=== PATIENT | male | born 1940 | race Caucasian/White ===

== ENCOUNTER → 2016-06-13 | Outpatient (CLI) | payer MEDICARE, OTHER ==
[~2016-06-13] MED LIST: ESOM20CA PO; GABA800T2 PO; IOHEXOL 180 MG/ML 10 ML VIAL. ONE; OXYC-250 PO; TAMS0.4C2 PO; methylPREDNISolone ACETATE 40 MG/ML VIAL. ONE; methylPREDNISolone ACETATE 80 MG/ML VIAL. ONE
--- NOTE | 2016-06-13 10:02 | PAIN ---
DATE OF SERVICE: 06/13/2016 PROGRESS NOTE DIAGNOSES: Lumbar radiculopathy with lumbar degenerative disk disease. HISTORY OF PRESENT ILLNESS: The patient is a 76-year-old male, who returns for followup status post lumbar epidural steroid ejection x 3, last seen in 01/2016. The patient did very well after the last ejection with approximately 70-75% improvement. The patient has been out of town, he has bear hunting in [place], returns now with pain returning to some extent in the low back and left lower extremity, was previously, lateral anterior thigh on the left side with some in the back, gluteus as well and across the low back. The patient reports it is sore and achy, started again in late May and is returned now, not quite at his baseline, but still is significant tender in the low back as well. The patient reports it is worse with standing, walking, change in position, riding a car. The patient rates it 7 on a scale of 10. Reports no new motor or sensory deficit; however, no new bowel or bladder incontinence, or other complaints. The patient's old chart was reviewed as his current medication regimen updated. Current review of systems updated today as well. PHYSICAL EXAMINATION: VITAL SIGNS: Today, the patient's blood pressure is 146/86, pulse 81, respirations 18, temperature 97.4 degrees Fahrenheit, height is 6 feet, weight is 224 pounds. GENERAL: The patient is awake, alert, oriented and appropriate, very pleasant demeanor. HEENT: Shows normocephalic, atraumatic. Extraocular movements are intact and symmetrical. Oral cavity shows mucous membranes moist and pink. Dentition is intact. NECK: Shows anterior throat supple without palpable lymphadenopathy noted. Swallow reflex is symmetrical. CHEST: Normal on inspection. Breath sounds are clear to auscultation bilaterally. CARDIOVASCULAR: S1, S2. ABDOMEN: Soft, nontender, nondistended. BACK: Shows spine grossly midline. Lumbar paraspinous musculature shows some moderate tenderness to palpation, but only diffusely in the middle, upper and lower distribution. The paraspinal muscles again appear symmetrical without evidence of atrophy or hypertrophy. The patient show good rotation of motion in both laterally as well as an extension, flexion without difficulty. EXTREMITIES: Lower extremities show deep tendon reflexes at 1+ in the patellar and tendo calcaneus tendons are equal. Motor exam is strong with 5/5 dorsiflexion, extension, quadriceps and hamstring flexion. PLAN: Options were discussed with the patient. This time we will proceed with a lumbar epidural steroid injection with fluoroscopic guidance. Risks were again discussed including, but not limited to bleeding, infection, possibility of epidural hematoma and subsequent neurologic compromise, dural puncture, headaches, spinal cord and/or nerve damage, side effects of steroid medication and poor results regarding pain control. The patient understands and wishes to proceed. The patient will return to clinic in approximately 2 weeks for followup, was counseled on return appointment, activity level, and side effects to be aware of. DIAGNOSES: Lumbar radiculopathy with lumbar degenerative disk disease. PROCEDURE: Lumbar epidural steroid injection, translaminar approach at the L3-L4 level with fluoroscopic guidance under sterile prep and drape using local anesthetic. Medication injected 120 mg of Depo-Medrol plus 10 mL of preservative free normal saline and 2 mL of Isovue for contrast. The patient's condition at discharge is stable. The patient tolerated procedure well, had no complications. ERIBERTO GEORGES MD DR: STEPHANIE/iman JOB#: [id number] / [id number]
== END | disposition home or self-care (01) ==
LOC: PNCL 08:23
PROVIDERS: ATTEND Anesthesiology
DX: M51.16 Intervertebral disc disorders with radiculopathy, lumbar region (principal)
CPT/HCPCS: 62327; J1030; J1040

== ENCOUNTER 2016-09-05 09:51 | Day surgery (SDC) | payer MEDICARE, OTHER ==
--- NOTE | 2016-09-01 14:35 | PDOC1 ---
History and Physical Date of Admission Date of Admission 09/05/16 Identification/Chief Complaint Chief Complaint bilateral knee pain Source Source: Chart review History of Present Illness History of Present Illness Pasha is a 76-year-old man with bilateral painful knees. He underwent an injection of 80mg depomedrol in the office to both of his knees on 04/26/16. He states that it did not help and mentions that he has had 2 injections since then by his primary care physician, Dr. Topete, which did not provide much relief either. He states that he just wants to talk today about scraping the arthritis off both of his knees because that is all that he thinks he needs. Past Medical History Cardiovascular: No pertinent hx Past Surgical History Past Surgical History: No pertinent history Family History Family History Patient reports no family history Social History Smoke: Quit (04/04/15) ALCOHOL: none Drugs: None Current Medications Current Medications Active Scripts Active Reported Tamsulosin Hcl 0.4 Mg Cap.er.24h 1 Cap PO DAILY Percocet 10-325 Mg Tablet (Oxycodone/Acetaminophen) 1 Each Tablet 1 Tab PO Q4- 6HRS Nexium Capsule (Esomeprazole Magnesium) 20 Mg Capsule.dr 1 Cap PO DAILY PRN Gabapentin 800 Mg Tablet 1 Tab PO TID Allergies Allergies: Coded Allergies: No Known Drug Allergies (Unverified , 08/18/13) Physical Exam General: Alert, Oriented X3, Cooperative, No acute distress HEENT: Atraumatic, EOMI Lungs: Normal air movement Heart: RRR Abdomen: Soft Extremities: No clubbing, No cyanosis, Normal pulses Skin: No rashes, No breakdown, No significant lesion Neuro: Normal speech, Sensation intact Psych/Mental Status: Mental status NL, Mood NL Images Images X-rays reviewed from 10/18/2014. He has mild medial joint space narrowing bilaterally, trace osteophyte formation. There is minimal malalignment. VTE Prophylaxis Ordered VTE Prophylaxis Devices: Yes VTE Pharmacological Prophylaxi: Yes Assessment/Plan Assessment/Plan Dr. Jeffrey and the patient discussed his bilateral medial knee pain. Dr. Jeffrey's initial recommendation was to consider total knee arthroplasty. We discussed risks, benefits, and alternatives. Arthroscopic treatment of his degenerative knees is an option, and certainly less risk than knee arthroplasty. Dr. Jeffrey discussed that there is some risk that he would have ongoing osteoarthritis pain and need further treatments. He has a friend or family member who had a scope and was told it would need a knee replacement, and is 17 years out from the scope still doing fine. He is eager to have arthroscopic treatment of both knees, under regional anesthetic, such as spinal. He says he does not like going to sleep for surgery. Although it is not my first recommendation, it is a reasonable approach, since he has minimal narrowing, and minimal malalignment. The recovery is slightly more difficult for bilateral knees, but he can use a walker and recover both knees simultaneously. He desires a spinal or similar anesthetic. We discussed potential risks of arthroscopic surgery, including risks of bleeding, infection, progressive arthritis, blood clots, or other potential surgical or anesthetic complications. All of the patient's questions were answered and they desire to proceed with surgery. JEYSON GILLESPIE Sep 01, 2016 14:35
[~2016-09-05] VITALS: Ht 182.9 cm; Wt 99.8 kg
[~2016-09-05 09:51] MED LIST changes: +CEFAZOLIN 2GM PREMIX 50 ML IV PRN; +FENTANYL PF 100 MCG/2 ML VIAL. IV PRN; +HYDROMORPHONE 2 MG/ML VIAL. IV PRN; -IOHEXOL 180 MG/ML 10 ML VIAL. ONE; +IV RINGERS,LACTATED 1000ML 1,000 ML IV SCH; +LIDOCAINE 1% 1 ML SYRINGE. ID PRN; +MORPHINE SULFATE 2 MG/ML DISP.SYRIN. IV PRN; +ONDANSETRON PF 4 MG/2 ML VIAL. IV PRN; +PROCHLORPERAZINE 10 MG/2 ML VIAL. IV PRN; -methylPREDNISolone ACETATE 40 MG/ML VIAL. ONE; -methylPREDNISolone ACETATE 80 MG/ML VIAL. ONE
[2016-09-05] MEDS ORDERED: EPINEPHRINE 30 MG/30 ML VIAL. ONE (09:53)
[2016-09-05] MEDS ORDERED: BUPIVACAINE-EPI 0.25%-1:200000 50 ML VIAL. ONE (09:53)
[2016-09-05] MEDS ORDERED: MIDAZOLAM HCL/PF 2 MG/2 ML VIAL. ONE (10:43)
[2016-09-05] MEDS ORDERED: FENTANYL PF 100 MCG/2 ML VIAL. ONE (10:43)
[2016-09-05] MEDS ORDERED: ONDANSETRON PF 4 MG/2 ML VIAL. ONE (12:41)
--- NOTE | 2016-09-05 13:42 | PDOC4 ---
Operative Note Operative Note Date of Procedure: September 05, 2016 Preoperative Diagnosis: bilateral knee pain Postoperative Diagnosis: bilateral knees medial and lateral meniscus tears Procedures Performed: bilateral knee arthroscopy with medial and lateral meniscectomy Surgeon: Gianna Jeffrey MD Flute Teacher: Teresa Vargas PA-C Anesthesia: General Estimated Blood Loss: 5 mL Specimens: none Drains: none Complications: none Tourniquet time: 26 minutes left knee 20 minutes right knee Indications for Procedure: The patient is a 76-year-old with bilateral knee pain, unrelieved with nonoperative treatment. Exam is consistent with a meniscus tear of each knee. We talked about the risks and benefits of proceeding with an arthroscopic procedure. We talked about potential risks of ongoing pain, progressive arthritis, bleeding, infection, blood clots, or other potential surgical or anesthetic complications. All of the patient's questions about surgery were answered and they desired to proceed. Written consent was obtained. Description of Operation: The patient was identified in the preoperative holding area. The correct bilateral knees were marked by me. The patient was taken to the operating room, where a general anesthetic was used. Preoperative antibiotics were given intravenously. A time-out procedure was performed. A tourniquet was placed on the upper thigh of each leg. Local anesthetic with epinephrine was injected sterilely into each knee joint. The limbs were prepped sterilely and sterile drapes were applied. The left limb was exsanguinated with an Esmarch bandage and the tourniquet was inflated to 350 mm Hg. Lateral and medial arthroscopy portals were established. The medial meniscus showed a posterior horn tear with unstable flaps. 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 The lateral tibiofemoral joint showed an anterior horn lateral meniscus tear, and a meniscectomy was performed with basket forceps and the motorized shaver back to a smooth stable base.The lateral articular surfaces showed chondromalacia Outerbridge grade III, and a shaving chondroplasty was performed removing unstable fragments of cartilage with the shaver. The patellofemoral joint showed chondromalacia Outerbridge grade III, and a shaving chondroplasty was performed removing unstable fragments of cartilage with the shaver. The lateral gutter showed a 3 mm loose body that was removed with a grasper. The suprapatellar pouch, medial and lateral gutters were otherwise free of loose bodies. Copious irrigation was used to drain all meniscal and chondral fragments, and the knee was drained of fluid. Steri- Strips were applied and additional local anesthetic with epinephrine was injected. A bulky sterile dressing was applied and the tourniquet was released. The right limb was exsanguinated with an Esmarch bandage and the tourniquet was inflated to 350 mm Hg. Lateral and medial arthroscopy portals were established. The medial meniscus showed a posterior horn tear with unstable flaps. 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 The lateral tibiofemoral joint showed a posterior horn lateral meniscus tear, and a meniscectomy was performed with basket forceps and the motorized shaver back to a smooth stable base.The lateral articular surfaces showed chondromalacia Outerbridge grade III, and a shaving chondroplasty was performed removing unstable fragments of cartilage with the shaver. The patellofemoral joint showed chondromalacia Outerbridge grade III, and a shaving chondroplasty was performed removing unstable fragments of cartilage with the shaver. The suprapatellar pouch, medial and lateral gutters were free of loose bodies. Copious irrigation was used to drain all meniscal and chondral fragments, and the knee was drained of fluid. Steri-Strips were applied and additional local anesthetic with epinephrine was injected. A bulky sterile dressing was applied and the tourniquet was released. Teresa Vargas PA-C my bilingual office assistant, helped throughout the procedure. She initially helped position the patient on the operating table with a thigh brace, lithotomy leg iraheta and tourniquet. Intraoperatively she manipulated the knee into the correct positions for arthroscopy while I ran the arthroscope in my left hand and shaver probe or other instruments in my right hand. Finally, at the end of the case, she helped remove the lithotomy leg iraheta, thigh brace and tourniquet and helped transfer the patient back to a [facility] in good condition. Needle and sponge counts were correct and there were no apparent complications. Gianna Jeffrey MD 09/05/2016 1:36 PM GIANNA JEFFREY MD Sep 05, 2016 13:42
[2016-09-05] MEDS ORDERED: OXYC5CAP3 PO (14:27)
[2016-09-05 16:08] VITALS: BP 159/96
== END 2016-09-05 16:17 | disposition home or self-care (01) ==
LOC: SURG 09:51
PROVIDERS: ATTEND Orthopaedic Surgery
DX: S83.282A Other tear of lateral meniscus, current injury, left knee, initial encounter (principal); S83.242A Other tear of medial meniscus, current injury, left knee, initial encounter; S83.281A Other tear of lateral meniscus, current injury, right knee, initial encounter; S83.241A Other tear of medial meniscus, current injury, right knee, initial encounter; M17.0 Bilateral primary osteoarthritis of knee; Z72.89 Other problems related to lifestyle; X58.XXXA Exposure to other specified factors, initial encounter; Y93.9 Activity, unspecified; Y92.9 Unspecified place or not applicable; Y99.9 Unspecified external cause status
CPT/HCPCS: 29880; J0171; J0690; J2250; J2405; J3010

== ENCOUNTER → 2016-12-19 | Outpatient (CLI) | payer MEDICARE, OTHER ==
[~2016-12-19] MED LIST changes: -CEFAZOLIN 2GM PREMIX 50 ML IV PRN; -FENTANYL PF 100 MCG/2 ML VIAL. IV PRN; -HYDROMORPHONE 2 MG/ML VIAL. IV PRN; +IOHEXOL 180 MG/ML 10 ML VIAL. ONE; -IV RINGERS,LACTATED 1000ML 1,000 ML IV SCH; -LIDOCAINE 1% 1 ML SYRINGE. ID PRN; -MORPHINE SULFATE 2 MG/ML DISP.SYRIN. IV PRN; -ONDANSETRON PF 4 MG/2 ML VIAL. IV PRN; -OXYC-250 PO; +OXYC-328 PO; +OXYC5CAP PO; -PROCHLORPERAZINE 10 MG/2 ML VIAL. IV PRN; +TADA5TAB PO; +methylPREDNISolone ACETATE 40 MG/ML VIAL. ONE; +methylPREDNISolone ACETATE 80 MG/ML VIAL. ONE
== END | disposition home or self-care (01) ==
LOC: PNCL 11:13
PROVIDERS: ATTEND Anesthesiology
DX: M51.16 Intervertebral disc disorders with radiculopathy, lumbar region (principal); M19.90 Unspecified osteoarthritis, unspecified site; F17.200 Nicotine dependence, unspecified, uncomplicated; Z87.39 Personal history of other diseases of the musculoskeletal system and connective tissue; Z72.89 Other problems related to lifestyle
CPT/HCPCS: 62323; J1030; J1040

== ENCOUNTER → 2017-08-28 | Outpatient (CLI) | payer MEDICARE, OTHER ==
[~2017-08-28] MED LIST changes: -ESOM20CA PO; -GABA800T2 PO; +IOHEXOL 180 MG/ML 10 ML VIAL.; -IOHEXOL 180 MG/ML 10 ML VIAL. ONE; -OXYC-328 PO; -OXYC5CAP PO; -TADA5TAB PO; -TAMS0.4C2 PO; +methylPREDNISolone ACETATE 40 MG/ML VIAL.; -methylPREDNISolone ACETATE 40 MG/ML VIAL. ONE; +methylPREDNISolone ACETATE 80 MG/ML VIAL.; -methylPREDNISolone ACETATE 80 MG/ML VIAL. ONE
== END ==
LOC: PNCL 07:52
DX: M51.16 Intervertebral disc disorders with radiculopathy, lumbar region (principal)
CPT/HCPCS: 62323; J1030; J1040; Q9965

== ENCOUNTER → 2018-07-25 | Outpatient (CLI) | payer MEDICARE, OTHER ==
[~2018-07-25] MED LIST changes: +ACET325T9 PO; +ALPR0.5T PO; +ALPR1TAB2 PO; +ASPI325T11 PO; +DICL100G18 TP; +ESCITALOPRAM OX20 MG PO; +ESOM20CA PO; +FERR325T14 PO; +FLUT9.9S NS; +GABA800T5 PO; -IOHEXOL 180 MG/ML 10 ML VIAL.; +IOHEXOL 180 MG/ML 10 ML VIAL. ONE; +LIDO700A21 TP; +MELO7.5T29 PO; +OMEP20TA63 PO; +OXYC-411 PO; +OXYC1TAB15 PO; +OXYC1TAB22 PO; +OXYC5CAP PO; +POTA20TA4 PO; +QUET100T4 PO; +QUET50TA PO; +TADA5TAB PO; +TAMS0.4C2 PO; +TAMS0.4C97 PO; -methylPREDNISolone ACETATE 40 MG/ML VIAL.; +methylPREDNISolone ACETATE 40 MG/ML VIAL. ONE; -methylPREDNISolone ACETATE 80 MG/ML VIAL.; +methylPREDNISolone ACETATE 80 MG/ML VIAL. ONE
--- NOTE | 2018-07-25 10:05 | PAIN ---
DATE OF SERVICE: 07/25/2018 PROGRESS NOTE FOR PAIN CLINIC DIAGNOSIS: Lumbar radiculopathy with lumbar degenerative disk disease. HISTORY OF PRESENT ILLNESS: The patient is a 78-year-old male who returns for followup status post lumbar epidural steroid injection x 1, which was in 08/28/2017, did very well with this with about 100% improvement for the first few months. The pain has been returning now over the past several months. The patient reports it is increasing in his low back radiating to the bilateral lower extremities, more on the left than the right in the right lateral thigh, anterior thigh, medial thigh with walking and standing, better with sitting or lying down, generally does not awaken him from sleep at night. He feels better lying down or sitting. The patient reports the pain when he is up and walking to 8 on a scale of 10 at its worst, 7 on average, 3 at its least and is a 6 today. The patient reports it is aching and dull, becoming more constant, more noticeable when he is having difficulty getting up out of a chair with greater ease and comfort and also with riding in a car, has been more difficult with changing positions when he gets out of the car. The patient reports no new motor or sensory deficits and no new bowel or bladder incontinence or other complaints. PHYSICAL EXAMINATION: VITAL SIGNS: The patient's blood pressure is 123/75, pulse 67, respirations 18 and temperature 97.3 degrees Fahrenheit. Height 6 feet and weight is 206 pounds. GENERAL: The patient is awake, alert, oriented, appropriate and very pleasant demeanor. HEENT: Head shows normocephalic and atraumatic. Extraocular movements are intact and symmetrical. Oral cavity: Mucous membranes are moist and pink. Dentition is intact. NECK: Shows anterior throat supple without palpable lymphadenopathy noted. Swallow reflex symmetrical. CHEST: Shows normal with inspection. Breath sounds are clear to auscultation bilaterally. HEART: Shows S1 and S2 clear. No murmurs auscultated soft. ABDOMEN: Soft, nontender and nondistended. No palpable organomegaly is noted. No rebound or guarding demonstrated. BACK: Shows spine grossly in the midline. Normal-appearing thoracic kyphosis and lumbar lordotic curvature. Lumbar paraspinous muscle shows symmetrical on inspection with palpation shows some moderate tenderness but only diffusely in the low lumbar distribution, but the patient shows no radiation, no asymmetry and no trigger points. Good rotational motion both laterally as well as extension and flexion of the lumbar spine without difficulty. No tenderness over the sacrum or sacroiliac regions over the spinous processes. EXTREMITIES: The patient's lower extremities show deep tendon reflexes 1+ in the patellar and tendo-calcaneus tendons are equal. Motor exam is strong with 5/5 dorsiflexion, extension, quadriceps and hamstring flexion. Peripheral pulses are 1+ posterior tibial. No peripheral edema is noted bilaterally. Options were discussed with the patient. The patient's old chart was reviewed as well as his current medication regimen updated. Current review of systems updated today as well and we will proceed with a lumbar epidural steroid injection today with fluoroscopic guidance. Risks were again discussed including, but not limited to bleeding, infection, possibility of epidural hematoma, subsequent neurological compromise, dural puncture, headaches, spinal cord and/or nerve damage, side effects of steroid medication and poor results regarding pain control. The patient understands and wished to proceed. The patient will return to the clinic in approximately 2 weeks for followup, was counseled as to return appointment, activity level and side effects to be aware of. DIAGNOSIS: Lumbar radiculopathy with lumbar degenerative disk disease. PROCEDURE: Lumbar epidural steroid injection, translaminar approach at L3-L4 level using C-arm fluoroscopic guidance under sterile prep and drape using local anesthetic. MEDICATION INJECTED: A total of 120 mg Depo-Medrol plus 10 mL of preservative-free normal saline and 2 mL of Isovue for contrast. CONDITION AT DISCHARGE: Stable. The patient tolerated the procedure well and had no complications. ERIBERTO GEORGES MD DR: STEPHANIE/iman JOB#: [id number] / [id number]
== END | disposition home or self-care (01) ==
LOC: PNCL 07:26
PROVIDERS: ATTEND Anesthesiology
DX: M51.16 Intervertebral disc disorders with radiculopathy, lumbar region (principal)
CPT/HCPCS: 62323; J1030; J1040; Q9965

== ENCOUNTER → 2018-11-18 | Outpatient (CLI) | payer MEDICARE, OTHER ==
[~2018-11-18] MED LIST changes: -ACET325T9 PO; -ALPR0.5T PO; -ASPI325T11 PO; -DICL100G18 TP; -IOHEXOL 180 MG/ML 10 ML VIAL. ONE; -LIDO700A21 TP; -MELO7.5T29 PO; -OXYC-411 PO; -OXYC1TAB15 PO; -POTA20TA4 PO; -methylPREDNISolone ACETATE 40 MG/ML VIAL. ONE; -methylPREDNISolone ACETATE 80 MG/ML VIAL. ONE
[2018-11-18 09:45] LABS: ALBUMIN 3.7 g/dL (3.4-5.0); CALCIUM 9.4 mg/dL (8.5-10.1); GFR 72.6; POTASSIUM 4.2 mmol/L (3.5-5.1)
[2018-11-18 09:57] LABS: BASO # 0.1 x10^3/uL (0.0-0.2); BASO % 1 % (0-3); EOS # 0.6 x10^3/uL (0.0-0.7); EOS % 9 % (0-3); HEMOGLOBIN 10.9 g/dL (13.0-17.5); LYMPH # 1.6 x10^3/uL (1.0-4.8); LYMPH % 25 % (24-48); MEAN CORPUSCULAR HEMOGLOBIN 22 pg (25-35); MEAN CORPUSCULAR HGB CONC 31 g/dL (31-37); MEAN CORPUSCULAR VOLUME 70 fL (79-100); MONO # 0.7 x10^3/uL (0.0-1.1); MONO % 12 % (0-9); NEUT # 3.3 x10^3uL (1.8-7.7); NEUT % 53 % (31-73); PLATELET COUNT 254 x10^3/uL (140-400); RED BLOOD COUNT 5.01 x10^6/uL (4.30-5.70); RED CELL DISTRIBUTION WIDTH 20.6 % (11.5-14.5); WHITE BLOOD COUNT 6.3 x10^3/uL (4.0-11.0)
[2018-11-18 10:16] LABS: PROTHROMBIN TIME PATIENT 12.7 SEC (11.7-14.0)
[2018-11-18 11:03] LABS: BILIRUBIN,URINE NEGATIVE (NEG); CLARITY,URINE CLEAR; COLOR,URINE YELLOW; NITRITE,URINE NEGATIVE (NEG); PH,URINE 5.5; PROTEIN,URINE NEGATIVE (NEG-TRACE); UROBILINOGEN,URINE 0.2 mg/dL (0.2 mg/dL)
[2018-11-18 11:32] LABS: SQUAMOUS EPITHELIAL CELL,UR FEW /LPF
[2018-11-18 11:33] LABS: BACTERIA,URINE 0 /HPF (0-FEW); RBC,URINE 0 /HPF (0-2)
--- NOTE | 2018-11-18 12:35 | EKG ---
[facility] [address] [place] [address] Test Date: 2018-11-18 Test Time: 12:26:34 Pat Name: SAMANTA JIMENEZ Department: Room: Gender: M Graphics Editor: LUL : 1940 Requested By: GIANNA BEASLEY Order Number: [id number] Reading MD: Hayden Jaime Measurements Intervals [place] Rate: 70 P: 50 UT: 190 QRS: 50 QRSD: 116 T: 14 QT: 424 QTc: 461 Interpretive Statements SINUS RHYTHM QRS(T) CONTOUR ABNORMALITY CONSISTENT WITH INFERIOR INFARCT PROBABLY OLD ABNORMAL ECG Electronically Signed On 11-22-2018 16:00:35 CDT by Hayden Jaime
[2018-11-18 13:15] LABS: ANISOCYTOSIS MOD; HYPOCHROMIA MOD; MICROCYTOSIS MOD; PLT ESTIMATE ADEQUATE (ADEQUATE)
--- NOTE | 2018-11-18 16:26 | RAD ---
Chest, 2 views, 11/18/2018: HISTORY: Preop evaluation for joint replacement The heart size is within normal limits. There is tortuosity and calcific plaquing of the thoracic aorta. No pulmonary infiltrate is seen. There is no evidence of pleural fluid. Mild scattered spurring is present in the spine. IMPRESSION: 1. Aortic atherosclerosis. 2. No acute cardiopulmonary abnormality is detected. Electronically signed by: Robert Pina MD (11/18/2018 4:23 PM) [facility]
== END | disposition home or self-care (01) ==
LOC: SURGPAT 13:13
PROVIDERS: ATTEND Orthopaedic Surgery
DX: Z01.818 Encounter for other preprocedural examination (principal); M17.12 Unilateral primary osteoarthritis, left knee; I70.0 Atherosclerosis of aorta; R94.31 Abnormal electrocardiogram [ECG] [EKG]; Z88.8 Allergy status to other drugs, medicaments and biological substances
CPT/HCPCS: 36415; 71046; 80048; 81001; 82040; 82306; 85025; 85610; 85651; 85730; 87641; 93005

== ENCOUNTER 2018-12-22 11:37 | Inpatient (IN) | payer MEDICARE, OTHER ==
[~2018-12-22] VITALS: Ht 167.6 cm; Wt 90.7 kg
[~2018-12-22 11:37] MED LIST changes: +ACET325T9 PO; +ALPR0.5T PO; +ASPI325T11 PO; +LIDO700A21 TP; +MELO7.5T29 PO; +OXYC-411 PO; +OXYC1TAB15 PO
--- NOTE | 2018-12-22 12:09 | PHYS DOC ---
Past Medical History Past Medical History: Other Additional Past Medical Histor: BACK PAIN Past Surgical History: Knee Replacement Alcohol Use: Sober Drug Use: None Adult General Chief Complaint Chief Complaint: ALTERED MENTAL STATUS HPI HPI Patient is a 78-year-old male who presents to the emergency department for evaluation. The patient had a knee replacement earlier this month on his left knee, and was hospitalized and then released this past Sunday, after being hospitalized with altered mental status acute metabolic encephalopathy. The patient's home health nurse reportedly went to check on him today, and was unable to gain access to the house. Police were required to break down the door, and they found the patient in a disheveled home, crawled up in bed. The patient herself denies any complaints but his speech is somewhat slurred, it is unclear how long this has been going on for. The patient denies any acute complaints other than pain in his left knee. There are no alleviating or exacerbating factors to his symptoms. The patient states he has developed diarrhea over the past 2 days. Review of Systems Review of Systems Constitutional: Denies fever or chills [] Eyes: Denies change in visual acuity, redness, or eye pain [] HENT: Denies nasal congestion or sore throat [] Respiratory: Denies cough or shortness of breath [] Cardiovascular: The patient denies any shortness of breath, chest pain, palpitations, or orthopnea[] GI: Denies abdominal pain, nausea, vomiting, bloody stools. Reports having had diarrhea for the past 2 days. [] : Denies dysuria or hematuria [] Musculoskeletal: Denies back pain or joint pain [] Integument: Denies rash or skin lesions [] Neurologic: Denies headache, focal weakness or sensory changes [] Endocrine: Denies polyuria or polydipsia [] All other systems were reviewed and found to be within normal limits, except as documented in this note. Current Medications Current Medications Current Medications Medications (Trade) Dose Ordered Sig/Nata Start Time Stop Time Status Last Admin Dose Admin Potassium Chloride (Klor-Con) 40 meq 1X ONCE 12/22/18 13:15 12/22/18 13:16 DC 12/22/18 13:18 40 MEQ Sodium Chloride 1,000 ml @ 125 mls/hr 1X ONCE 12/22/18 13:15 12/22/18 21:14 12/22/18 13:13 125 MLS/HR Allergies Allergies Allergies Coded Allergies Type Severity Reaction Last Updated Verified No Known Drug Allergies 12/18/18 No Physical Exam Physical Exam PHYSICAL EXAM: CONSTITUTIONAL: Well developed, well nourished HEAD: normocephalic, atraumatic EENT: PERRL, EOMI. Conjunctivae normal color, sclerae non-icteric; moist mucous membranes. NECK: Supple, non-tender; no meningismus. LUNGS: Lungs CTA, breathing even and unlabored. Normal air movement. HEART: Regular rate and rhythm, no murmur CHEST: No deformity; non-tender ABDOMEN: The abdomen is soft, and non-tender, no masses or bruits. EXTREM: There are chronic deformities of the left hand, there are postsurgical changes of the left knee, with slightly limited range of motion of the left knee secondary to pain, the remainder the extremities are unremarkable, with Normal ROM; no deformity, no calf tenderness. Normal pulses palpable in all extremities. There is no pedal edema. SKIN: No rash; no diaphoresis NEURO: Alert; normal cognition, speech is mildly slurred, but intelligible; CN's grossly intact; strength grossly intact without focal deficit. BACK: No CVA TTP. Current Patient Data Vital Signs Vital Signs Date Time Temp Pulse Resp B/P (MAP) Pulse Ox O2 Delivery O2 Flow Rate FiO2 12/22/18 13:30 69 12/22/18 13:00 96 12/22/18 11:44 98.0 16 164/79 (107) Room Air 98.0 Lab Values Laboratory Tests Test 12/22/18 12:16 12/22/18 14:11 White Blood Count 9.4 x10^3/uL (4.0-11.0) Red Blood Count 4.36 x10^6/uL (4.30-5.70) Hemoglobin 10.9 g/dL (13.0-17.5) L Hematocrit 33.3 % (39.0-53.0) L Mean Corpuscular Volume 76 fL (79-100) L Mean Corpuscular Hemoglobin 25 pg (25-35) Mean Corpuscular Hemoglobin Concent 33 g/dL (31-37) Red Cell Distribution Width 30.0 % (11.5-14.5) H Platelet Count 440 x10^3/uL (140-400) H Neutrophils (%) (Auto) 79 % (31-73) H Lymphocytes (%) (Auto) 11 % (24-48) L Monocytes (%) (Auto) 8 % (0-9) Eosinophils (%) (Auto) 1 % (0-3) Basophils (%) (Auto) 1 % (0-3) Neutrophils # (Auto) 7.4 x10^3/uL (1.8-7.7) Lymphocytes # (Auto) 1.0 x10^3/uL (1.0-4.8) Monocytes # (Auto) 0.8 x10^3/uL (0.0-1.1) Eosinophils # (Auto) 0.1 x10^3/uL (0.0-0.7) Basophils # (Auto) 0.1 x10^3/uL (0.0-0.2) Platelet Estimate Increased (ADEQUATE) Large Platelets Occ Polychromasia Slight Anisocytosis Marked Ovalocytes Few Schistocytes Occ Sodium Level 141 mmol/L (136-145) Potassium Level 3.1 mmol/L (3.5-5.1) L Chloride Level 105 mmol/L (98-107) Carbon Dioxide Level 27 mmol/L (21-32) Anion Gap 9 (6-14) Blood Urea Nitrogen 18 mg/dL (8-26) Creatinine 0.8 mg/dL (0.7-1.3) Estimated GFR (Cockcroft-Gault) 94.0 BUN/Creatinine Ratio 23 (6-20) H Glucose Level 87 mg/dL (70-99) Calcium Level 9.2 mg/dL (8.5-10.1) Magnesium Level 2.1 mg/dL (1.8-2.4) Total Bilirubin 0.8 mg/dL (0.2-1.0) Aspartate Amino Transferase (AST) 29 U/L (15-37) Alanine Aminotransferase (ALT) 52 U/L (16-63) Alkaline Phosphatase 60 U/L (46-116) Troponin I Quantitative < 0.017 ng/mL (0.000-0.055) IH-Cdu-E-Type Natriuretic Peptide 1446 pg/mL (0-449) H Total Protein 6.8 g/dL (6.4-8.2) Albumin 3.3 g/dL (3.4-5.0) L Albumin/Globulin Ratio 0.9 (1.0-1.7) L Thyroid Stimulating Hormone (TSH) 0.823 uIU/mL (0.358-3.74) Urine Collection Type Unknown Urine Color Yellow Urine Clarity Clear Urine pH 6.0 Urine Specific [place] 1.020 Urine Protein Negative mg/dL (NEG-TRACE) Urine Glucose (UA) Negative mg/dL (NEG) Urine Ketones (Stick) 40 mg/dL (NEG) Urine Blood Negative (NEG) Urine Nitrite Negative (NEG) Urine Bilirubin Negative (NEG) Urine Urobilinogen Dipstick 0.2 mg/dL (0.2 mg/dL) Urine Leukocyte Esterase Negative (NEG) Urine RBC Occ /HPF (0-2) Urine WBC Occ /HPF (0-4) Urine Squamous Epithelial Cells Occ /LPF Urine Bacteria 0 /HPF (0-FEW) Urine Mucus Mod /LPF Urine Yeast Present /HPF Laboratory Tests 12/22/18 12:16 Laboratory Tests 12/22/18 12:16 EKG EKG Normal sinus rhythm at a rate of 75 beats for minute, normal intervals, normal axis, inferior Q waves, there are no acute ischemic ST/T changes.[] Radiology/Procedures Radiology/Procedures [PROCEDURE: PORTABLE CHEST 1V PROCEDURE: PORTABLE CHEST 1V CLINICAL INDICATION: Altered mental status. COMPARISON: None FINDINGS: No pneumothorax identified. Cardiac and mediastinal contours unremarkable. No pulmonary consolidation or acute airspace disease. No acute osseous abnormalities identified. IMPRESSION: No pulmonary consolidation or acute airspace disease. ] PROCEDURE: CT HEAD WO CONTRAST PQRS Compliance statement: One or more of the following individualized dose reduction techniques were utilized for this examination: 1. Automated exposure control. 2. Adjustment of the mA and/or kV according to patient size. 3. Use of iterative reconstruction technique. Indication:Altered mental status. TECHNIQUE: CT head without IV contrast COMPARISON:12/16/2018 FINDINGS: Pathologic extra-axial or intra-axial fluid collection. The ventricles and basal cisterns are within normal limits. No acute intracranial bleed. No focal loss of pavon-white differentiation. Orbits are within normal limits. No suspicious calvarial lesion. Visualized paranasal sinuses and mastoid air cells are clear. IMPRESSION: No acute intracranial processes noncontrast CT. If concern for acute ischemic stroke is high, please consider MRI brain Course & Med Decision Making Course & Med Decision Making Pertinent Labs and Imaging studies reviewed. (See chart for details) []2:45 PM: The patient's condition remained stable. Initially he was very resistant Sunday of coming back into the hospital, but he is unable to stand on his own without significant help. His daughters, or present in the emergency department, both would like the patient hospitalized and the patient finally relented and agreed to be hospitalized. I discussed the case with the hospitalist will admit the patient for further evaluation and treatment. Dragon Disclaimer Dragon Disclaimer This electronic medical record was generated, in whole or in part, using a voice recognition dictation system. Departure Departure Impression: Primary Impression: Weakness Additional Impressions: Failure to thrive in adult Hypokalemia Disposition: 09 ADMITTED INPATIENT Admitting Physician: RAMIN Condition: STABLE Referrals: KRYSTYNA JAMISON MD (PCP) Problem Qualifiers JAEL DUBOIS MD Dec 22, 2018 12:09
[2018-12-22 12:29] LABS: BASO # 0.1 x10^3/uL (0.0-0.2); BASO % 1 % (0-3); EOS # 0.1 x10^3/uL (0.0-0.7); EOS % 1 % (0-3); HEMATOCRIT 33.3 % (39.0-53.0); HEMOGLOBIN 10.9 g/dL (13.0-17.5); LYMPH % 11 % (24-48); MEAN CORPUSCULAR HEMOGLOBIN 25 pg (25-35); MEAN CORPUSCULAR HGB CONC 33 g/dL (31-37); MEAN CORPUSCULAR VOLUME 76 fL (79-100); MONO # 0.8 x10^3/uL (0.0-1.1); MONO % 8 % (0-9); NEUT # 7.4 x10^3/uL (1.8-7.7); NEUT % 79 % (31-73); PLATELET COUNT 440 x10^3/uL (140-400); RED BLOOD COUNT 4.36 x10^6/uL (4.30-5.70); WHITE BLOOD COUNT 9.4 x10^3/uL (4.0-11.0)
[2018-12-22 12:33] LABS: CALCIUM 9.2 mg/dL (8.5-10.1); CREATININE 0.8 mg/dL (0.7-1.3); POTASSIUM 3.1 mmol/L (3.5-5.1)
--- NOTE | 2018-12-22 12:38 | RAD ---
PQRS Compliance statement: One or more of the following individualized dose reduction techniques were utilized for this examination: 1. Automated exposure control. 2. Adjustment of the mA and/or kV according to patient size. 3. Use of iterative reconstruction technique. Indication:Altered mental status. TECHNIQUE: CT head without IV contrast COMPARISON:12/16/2018 FINDINGS: Pathologic extra-axial or intra-axial fluid collection. The ventricles and basal cisterns are within normal limits. No acute intracranial bleed. No focal loss of pavon-white differentiation. Orbits are within normal limits. No suspicious calvarial lesion. Visualized paranasal sinuses and mastoid air cells are clear. IMPRESSION: No acute intracranial processes noncontrast CT. If concern for acute ischemic stroke is high, please consider MRI brain.Electronically signed by: Juan Collins DO (12/22/2018 12:36 PM) [facility]
[2018-12-22 12:39] LABS: ALBUMIN 3.3 g/dL (3.4-5.0); ALBUMIN/GLOBULIN RATIO 0.9 (1.0-1.7); MAGNESIUM 2.1 mg/dL (1.8-2.4); TOTAL BILIRUBIN 0.8 mg/dL (0.2-1.0); TOTAL PROTEIN 6.8 g/dL (6.4-8.2)
--- NOTE | 2018-12-22 12:41 | RAD ---
PROCEDURE: PORTABLE CHEST 1V CLINICAL INDICATION: Altered mental status. COMPARISON: None FINDINGS: No pneumothorax identified. Cardiac and mediastinal contours unremarkable. No pulmonary consolidation or acute airspace disease. No acute osseous abnormalities identified. IMPRESSION: No pulmonary consolidation or acute airspace disease. Electronically signed by: Juan Collins DO (12/22/2018 12:38 PM) [facility]
[2018-12-22 13:11] LABS: ANISOCYTOSIS MARKED; OVALOCYTES FEW; PLT ESTIMATE INCREASED (ADEQUATE); POLYCHROMASIA SLIGHT; SCHISTOCYTES OCC
[2018-12-22] MEDS ORDERED: POTASSIUM CHLORIDE 20 MEQ TABLET.ER. PO ONE (13:15)
[2018-12-22] MEDS ORDERED: IV NORMAL SALINE 1000ML BAG 1,000 ML IV ONE (13:15)
[2018-12-22 14:27] LABS: BILIRUBIN,URINE NEGATIVE (NEG); CLARITY,URINE CLEAR; COLOR,URINE YELLOW; NITRITE,URINE NEGATIVE (NEG); PROTEIN,URINE NEGATIVE (NEG-TRACE); UROBILINOGEN,URINE 0.2 mg/dL (0.2 mg/dL)
[2018-12-22 14:38] LABS: BACTERIA,URINE 0 /HPF (0-FEW); RBC,URINE OCC /HPF (0-2); SQUAMOUS EPITHELIAL CELL,UR OCC /LPF; WBC,URINE OCC /HPF (0-4)
[2018-12-22 14:42] LABS: YEAST,URINE PRESENT /HPF
[2018-12-22] MEDS ORDERED: ONDANSETRON PF 4 MG/2 ML VIAL. IV PRN (14:45)
[2018-12-22] MEDS ORDERED: cloNIDine HCL 0.1 MG TABLET PO PRN (14:45)
[2018-12-22] MEDS ORDERED: ACETAMINOPHEN 500 MG TABLET PO PRN (14:45)
[2018-12-22] MEDS ORDERED: ACETAMINOPHEN 325 MG TABLET. PO PRN (14:45)
[2018-12-22] MEDS ORDERED: TEMAZEPAM 7.5 MG CAPSULE PO PRN (14:45)
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
[2018-12-22] MEDS ORDERED: QUEtiapine 25 MG TABLET. PO PRN (16:00)
[2018-12-22] MEDS: ACETAMINOPHEN/CODEINE 300/30MG TABLET. PO PRN (17:33)
--- NOTE | 2018-12-22 18:02 | EKG ---
[facility] [address] [place] [address] Test Date: 2018-12-22 Test Time: 11:40:16 Pat Name: SAMANTA JIMENEZ Department: Room: Gender: M Bond Underwriter: : 1940 Requested By: JAEL DUBOIS Order Number: [id number] Reading MD: Measurements Intervals [place] Rate: 75 P: 35 NE: 192 QRS: 31 QRSD: 106 T: 18 QT: 408 QTc: 458 Interpretive Statements SINUS RHYTHM QRS(T) CONTOUR ABNORMALITY CONSISTENT WITH INFERIOR INFARCT PROBABLY OLD ABNORMAL ECG RI6.01 Unconfirmed report No previous ECG available for comparison
[2018-12-22 19:00] VITALS: BP 148/76
[2018-12-22] MEDS: GABAPENTIN 300 MG CAPSULE. PO SCH (19:48)
[2018-12-22] MEDS: QUEtiapine 100 MG TABLET. PO SCH (19:48)
[2018-12-22] MEDS: CITALOPRAM 20 MG TABLET. PO SCH (19:48)
[2018-12-22] MEDS: ASPIRIN ENTERIC COATED 325 MG TABLET.DR. PO SCH (19:49)
[2018-12-22 23:00] VITALS: BP 143/81
--- NOTE | 2018-12-23 01:30 | NUR ---
This RN resumed cared of this patient at this time. RN received report from Karli OLSON. RN will monitor patient closely.
[2018-12-23 03:00] VITALS: BP 137/76
[2018-12-23] MEDS: ACETAMINOPHEN/CODEINE 300/30MG TABLET. PO PRN (04:01)
[2018-12-23] MEDS: PANTOPRAZOLE 40 MG TABLET.DR. PO SCH (06:37)
[2018-12-23 07:00] VITALS: BP 141/85
[2018-12-23 07:18] LABS: CALCIUM 8.5 mg/dL (8.5-10.1); CREATININE 0.8 mg/dL (0.7-1.3); POTASSIUM 3.2 mmol/L (3.5-5.1)
--- NOTE | 2018-12-23 08:36 | PDOC ---
PROGRESS NOTES Chief Complaint Chief Complaint acute metabolic encephalopathy Nausea, and vomiting, Anemia Thrombocytosis heart failure, chronic diastolic moderate cerebral diffuse atrophy.by ct head Nonobstructing left renal stone. 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 Hypokalemia History of Present Illness History of Present Illness Mr Stallworth is a 78 yo M recently discharged from hospital, readmitted after he was found by HH RN, confused, unkempt, unlivable living conditions, was initially supposed to have discharge to [place], but he insisted on [facility] instead, as he has a dog at home he wishes to care for. Now readmitted, Labs low K 3.1, rest is ok, Microcytic anemia, CT head CXR ok He is tearful and upset today, still somewhat confused. Insistent about needing to leave to finalize a divorce and [facility] his medical power of city attorney. He denies CP or SOB. Had a loose BM this morning, states it was more formed. Vitals Vitals Vital Signs Date Time Temp Pulse Resp B/P (MAP) Pulse Ox O2 Delivery O2 Flow Rate FiO2 12/23/18 07:00 98.2 85 16 141/85 (103) 96 Room Air 98.2 Physical Exam General: Alert, Cooperative, No acute distress Lungs: Clear Abdomen: Soft, Other (hyperactive BS< non tender) Extremities: No clubbing, No cyanosis, No edema, Normal pulses, No tenderness/swelling Skin: No rashes, No breakdown, No significant lesion Labs LABS Laboratory Tests Test 12/22/18 12:16 12/22/18 14:11 12/23/18 06:30 White Blood Count 9.4 x10^3/uL (4.0-11.0) Red Blood Count 4.36 x10^6/uL (4.30-5.70) Hemoglobin 10.9 g/dL (13.0-17.5) Hematocrit 33.3 % (39.0-53.0) Mean Corpuscular Volume 76 fL (79-100) Mean Corpuscular Hemoglobin 25 pg (25-35) Mean Corpuscular Hemoglobin Concent 33 g/dL (31-37) Red Cell Distribution Width 30.0 % (11.5-14.5) Platelet Count 440 x10^3/uL (140-400) Neutrophils (%) (Auto) 79 % (31-73) Lymphocytes (%) (Auto) 11 % (24-48) Monocytes (%) (Auto) 8 % (0-9) Eosinophils (%) (Auto) 1 % (0-3) Basophils (%) (Auto) 1 % (0-3) Neutrophils # (Auto) 7.4 x10^3/uL (1.8-7.7) Lymphocytes # (Auto) 1.0 x10^3/uL (1.0-4.8) Monocytes # (Auto) 0.8 x10^3/uL (0.0-1.1) Eosinophils # (Auto) 0.1 x10^3/uL (0.0-0.7) Basophils # (Auto) 0.1 x10^3/uL (0.0-0.2) Platelet Estimate Increased (ADEQUATE) Large Platelets Occ Polychromasia Slight Anisocytosis Marked Ovalocytes Few Schistocytes Occ Sodium Level 141 mmol/L (136-145) 142 mmol/L (136-145) Potassium Level 3.1 mmol/L (3.5-5.1) 3.2 mmol/L (3.5-5.1) Chloride Level 105 mmol/L (98-107) 109 mmol/L (98-107) Carbon Dioxide Level 27 mmol/L (21-32) 24 mmol/L (21-32) Anion Gap 9 (6-14) 9 (6-14) Blood Urea Nitrogen 18 mg/dL (8-26) 14 mg/dL (8-26) Creatinine 0.8 mg/dL (0.7-1.3) 0.8 mg/dL (0.7-1.3) Estimated GFR (Cockcroft-Gault) 94.0 94.0 BUN/Creatinine Ratio 23 (6-20) Glucose Level 87 mg/dL (70-99) 89 mg/dL (70-99) Calcium Level 9.2 mg/dL (8.5-10.1) 8.5 mg/dL (8.5-10.1) Magnesium Level 2.1 mg/dL (1.8-2.4) Iron Level 27 ug/dL (65-175) Total Iron Binding Capacity 292 ug/dL (250-450) Iron Saturation 9 % (15-34) Total Bilirubin 0.8 mg/dL (0.2-1.0) Aspartate Amino Transf (AST/SGOT) 29 U/L (15-37) Alanine Aminotransferase (ALT/SGPT) 52 U/L (16-63) Alkaline Phosphatase 60 U/L (46-116) Troponin I Quantitative < 0.017 ng/mL (0.000-0.055) GV-Aud-K-Type Natriuretic Peptide 1446 pg/mL (0-449) Total Protein 6.8 g/dL (6.4-8.2) Albumin 3.3 g/dL (3.4-5.0) Albumin/Globulin Ratio 0.9 (1.0-1.7) Thyroid Stimulating Hormone (TSH) 0.823 uIU/mL (0.358-3.74) Urine Collection Type Unknown Urine Color Yellow Urine Clarity Clear Urine pH 6.0 Urine Specific [place] 1.020 Urine Protein Negative mg/dL (NEG-TRACE) Urine Glucose (UA) Negative mg/dL (NEG) Urine Ketones (Stick) 40 mg/dL (NEG) Urine Blood Negative (NEG) Urine Nitrite Negative (NEG) Urine Bilirubin Negative (NEG) Urine Urobilinogen Dipstick 0.2 mg/dL (0.2 mg/dL) Urine Leukocyte Esterase Negative (NEG) Urine RBC Occ /HPF (0-2) Urine WBC Occ /HPF (0-4) Urine Squamous Epithelial Cells Occ /LPF Urine Bacteria 0 /HPF (0-FEW) Urine Mucus Mod /LPF Urine Yeast Present /HPF Assessment and Plan Assessmemt and Plan Problems Medical Problems: (1) Failure to thrive in adult Status: Acute (2) Hypokalemia Status: Acute (3) Weakness Status: Acute Comment Review of Relevant I have reviewed the following items vivi (where applicable) has been applied. Labs Laboratory Tests Test 12/22/18 12:16 12/22/18 14:11 12/23/18 06:30 White Blood Count 9.4 x10^3/uL (4.0-11.0) Red Blood Count 4.36 x10^6/uL (4.30-5.70) Hemoglobin 10.9 g/dL (13.0-17.5) Hematocrit 33.3 % (39.0-53.0) Mean Corpuscular Volume 76 fL (79-100) Mean Corpuscular Hemoglobin 25 pg (25-35) Mean Corpuscular Hemoglobin Concent 33 g/dL (31-37) Red Cell Distribution Width 30.0 % (11.5-14.5) Platelet Count 440 x10^3/uL (140-400) Neutrophils (%) (Auto) 79 % (31-73) Lymphocytes (%) (Auto) 11 % (24-48) Monocytes (%) (Auto) 8 % (0-9) Eosinophils (%) (Auto) 1 % (0-3) Basophils (%) (Auto) 1 % (0-3) Neutrophils # (Auto) 7.4 x10^3/uL (1.8-7.7) Lymphocytes # (Auto) 1.0 x10^3/uL (1.0-4.8) Monocytes # (Auto) 0.8 x10^3/uL (0.0-1.1) Eosinophils # (Auto) 0.1 x10^3/uL (0.0-0.7) Basophils # (Auto) 0.1 x10^3/uL (0.0-0.2) Platelet Estimate Increased (ADEQUATE) Large Platelets Occ Polychromasia Slight Anisocytosis Marked Ovalocytes Few Schistocytes Occ Sodium Level 141 mmol/L (136-145) 142 mmol/L (136-145) Potassium Level 3.1 mmol/L (3.5-5.1) 3.2 mmol/L (3.5-5.1) Chloride Level 105 mmol/L (98-107) 109 mmol/L (98-107) Carbon Dioxide Level 27 mmol/L (21-32) 24 mmol/L (21-32) Anion Gap 9 (6-14) 9 (6-14) Blood Urea Nitrogen 18 mg/dL (8-26) 14 mg/dL (8-26) Creatinine 0.8 mg/dL (0.7-1.3) 0.8 mg/dL (0.7-1.3) Estimated GFR (Cockcroft-Gault) 94.0 94.0 BUN/Creatinine Ratio 23 (6-20) Glucose Level 87 mg/dL (70-99) 89 mg/dL (70-99) Calcium Level 9.2 mg/dL (8.5-10.1) 8.5 mg/dL (8.5-10.1) Magnesium Level 2.1 mg/dL (1.8-2.4) Iron Level 27 ug/dL (65-175) Total Iron Binding Capacity 292 ug/dL (250-450) Iron Saturation 9 % (15-34) Total Bilirubin 0.8 mg/dL (0.2-1.0) Aspartate Amino Transf (AST/SGOT) 29 U/L (15-37) Alanine Aminotransferase (ALT/SGPT) 52 U/L (16-63) Alkaline Phosphatase 60 U/L (46-116) Troponin I Quantitative < 0.017 ng/mL (0.000-0.055) ZR-Nyn-V-Type Natriuretic Peptide 1446 pg/mL (0-449) Total Protein 6.8 g/dL (6.4-8.2) Albumin 3.3 g/dL (3.4-5.0) Albumin/Globulin Ratio 0.9 (1.0-1.7) Thyroid Stimulating Hormone (TSH) 0.823 uIU/mL (0.358-3.74) Urine Collection Type Unknown Urine Color Yellow Urine Clarity Clear Urine pH 6.0 Urine Specific [place] 1.020 Urine Protein Negative mg/dL (NEG-TRACE) Urine Glucose (UA) Negative mg/dL (NEG) Urine Ketones (Stick) 40 mg/dL (NEG) Urine Blood Negative (NEG) Urine Nitrite Negative (NEG) Urine Bilirubin Negative (NEG) Urine Urobilinogen Dipstick 0.2 mg/dL (0.2 mg/dL) Urine Leukocyte Esterase Negative (NEG) Urine RBC Occ /HPF (0-2) Urine WBC Occ /HPF (0-4) Urine Squamous Epithelial Cells Occ /LPF Urine Bacteria 0 /HPF (0-FEW) Urine Mucus Mod /LPF Urine Yeast Present /HPF Laboratory Tests Test 12/22/18 12:16 12/22/18 14:11 12/23/18 06:30 White Blood Count 9.4 x10^3/uL (4.0-11.0) Red Blood Count 4.36 x10^6/uL (4.30-5.70) Hemoglobin 10.9 g/dL (13.0-17.5) Hematocrit 33.3 % (39.0-53.0) Mean Corpuscular Volume 76 fL (79-100) Mean Corpuscular Hemoglobin 25 pg (25-35) Mean Corpuscular Hemoglobin Concent 33 g/dL (31-37) Red Cell Distribution Width 30.0 % (11.5-14.5) Platelet Count 440 x10^3/uL (140-400) Neutrophils (%) (Auto) 79 % (31-73) Lymphocytes (%) (Auto) 11 % (24-48) Monocytes (%) (Auto) 8 % (0-9) Eosinophils (%) (Auto) 1 % (0-3) Basophils (%) (Auto) 1 % (0-3) Neutrophils # (Auto) 7.4 x10^3/uL (1.8-7.7) Lymphocytes # (Auto) 1.0 x10^3/uL (1.0-4.8) Monocytes # (Auto) 0.8 x10^3/uL (0.0-1.1) Eosinophils # (Auto) 0.1 x10^3/uL (0.0-0.7) Basophils # (Auto) 0.1 x10^3/uL (0.0-0.2) Platelet Estimate Increased (ADEQUATE) Large Platelets Occ Polychromasia Slight Anisocytosis Marked Ovalocytes Few Schistocytes Occ Sodium Level 141 mmol/L (136-145) 142 mmol/L (136-145) Potassium Level 3.1 mmol/L (3.5-5.1) 3.2 mmol/L (3.5-5.1) Chloride Level 105 mmol/L (98-107) 109 mmol/L (98-107) Carbon Dioxide Level 27 mmol/L (21-32) 24 mmol/L (21-32) Anion Gap 9 (6-14) 9 (6-14) Blood Urea Nitrogen 18 mg/dL (8-26) 14 mg/dL (8-26) Creatinine 0.8 mg/dL (0.7-1.3) 0.8 mg/dL (0.7-1.3) Estimated GFR (Cockcroft-Gault) 94.0 94.0 BUN/Creatinine Ratio 23 (6-20) Glucose Level 87 mg/dL (70-99) 89 mg/dL (70-99) Calcium Level 9.2 mg/dL (8.5-10.1) 8.5 mg/dL (8.5-10.1) Magnesium Level 2.1 mg/dL (1.8-2.4) Iron Level 27 ug/dL (65-175) Total Iron Binding Capacity 292 ug/dL (250-450) Iron Saturation 9 % (15-34) Total Bilirubin 0.8 mg/dL (0.2-1.0) Aspartate Amino Transf (AST/SGOT) 29 U/L (15-37) Alanine Aminotransferase (ALT/SGPT) 52 U/L (16-63) Alkaline Phosphatase 60 U/L (46-116) Troponin I Quantitative < 0.017 ng/mL (0.000-0.055) GJ-Ngn-E-Type Natriuretic Peptide 1446 pg/mL (0-449) Total Protein 6.8 g/dL (6.4-8.2) Albumin 3.3 g/dL (3.4-5.0) Albumin/Globulin Ratio 0.9 (1.0-1.7) Thyroid Stimulating Hormone (TSH) 0.823 uIU/mL (0.358-3.74) Urine Collection Type Unknown Urine Color Yellow Urine Clarity Clear Urine pH 6.0 Urine Specific [place] 1.020 Urine Protein Negative mg/dL (NEG-TRACE) Urine Glucose (UA) Negative mg/dL (NEG) Urine Ketones (Stick) 40 mg/dL (NEG) Urine Blood Negative (NEG) Urine Nitrite Negative (NEG) Urine Bilirubin Negative (NEG) Urine Urobilinogen Dipstick 0.2 mg/dL (0.2 mg/dL) Urine Leukocyte Esterase Negative (NEG) Urine RBC Occ /HPF (0-2) Urine WBC Occ /HPF (0-4) Urine Squamous Epithelial Cells Occ /LPF Urine Bacteria 0 /HPF (0-FEW) Urine Mucus Mod /LPF Urine Yeast Present /HPF Medications Current Medications Sodium Chloride 1,000 ml @ 125 mls/hr 1X ONCE IV Last administered on 12/22/18at 13:13; Start 12/22/18 at 13:15; Stop 12/22/18 at 21:14; Status DC Potassium Chloride (Klor-Con) 40 meq 1X ONCE PO Last administered on 12/22/18at 13:18; Start 12/22/18 at 13:15; Stop 12/22/18 at 13:16; Status DC Clonidine HCl (Catapres) 0.1 mg PRN Q1HR PRN PO HYPERTENSION; Start 12/22/18 at 14:45 Temazepam (Restoril) 7.5 mg PRN QHS PRN PO INSOMNIA; Start 12/22/18 at 14:45 Ondansetron HCl (Zofran) 4 mg PRN Q6HRS PRN IV NAUSEA/VOMITING; Start 12/22/18 at 14:45 Acetaminophen (Tylenol) 500 mg PRN Q6HRS PRN PO HEADACHE / TEMP Last administered on 12/23/18at 07:52; Start 12/22/18 at 14:45 Acetaminophen/ Codeine Phosphate (Tylenol #3) 1 tab PRN Q6HRS PRN PO PAIN MILD Last administered on 12/23/18at 04:01; Start 12/22/18 at 14:45 Acetaminophen (Tylenol) 650 mg QID PRN PO PAIN; Start 12/22/18 at 14:45; Status UNV Aspirin (Ecotrin) 325 mg BID PO Last administered on 12/22/18at 19:49; Start 12/22/18 at 21:00 Lidocaine (Lidoderm) 1 patch DAILY TP ; Start 12/23/18 at 09:00 Tamsulosin HCl (Flomax) 0.4 mg DAILY PO ; Start 12/23/18 at 09:00 Citalopram Hydrobromide (CeleXA) 40 mg QHS PO Last administered on 12/22/18at 19:48; Start 12/22/18 at 21:00 Fluticasone Propionate (Flonase) 2 spray DAILY NS ; Start 12/23/18 at 09:00 Gabapentin (Neurontin) 600 mg TID PO Last administered on 12/22/18at 19:48; Start 12/22/18 at 21:00 Meloxicam (Mobic) 7.5 mg DAILY PO ; Start 12/23/18 at 09:00 Pantoprazole Sodium (Protonix) 40 mg DAILYAC PO Last administered on 12/23/18at 06:37; Start 12/23/18 at 07:30 Quetiapine Fumarate (SEROquel) 50 mg PRN DAILY PRN PO ANXIETY / AGITATION; Start 12/22/18 at 16:00 Quetiapine Fumarate (SEROquel) 100 mg QHS PO Last administered on 12/22/18at 19:48; Start 12/22/18 at 21:00 Active Scripts Active Tylenol (Acetaminophen) 325 Mg Tablet 2 Tab PO QID PRN Lidocaine PATCH (Lidocaine) 1 Each Adh..patch 1 Each TP DAILY REMOVE AFTER 12 HOURS Meloxicam 7.5 Mg Tablet 7.5 Mg PO DAILY 30 Days Take one tablet by mouth once a day Aspirin Ec (Aspirin) 325 Mg Tablet.dr 325 Mg PO BID Take one 325 mg aspirin by mouth twice a day Reported Escitalopram Oxalate 20 Mg Tablet 20 Mg PO HS Quetiapine Fumarate 50 Mg Tablet 50 Mg PO PRN DAILY PRN Seroquel (Quetiapine Fumarate) 100 Mg Tablet 100 Mg PO HS Prilosec Otc (Omeprazole Magnesium) 20 Mg Tablet.dr 40 Mg PO DAILY Flonase Allergy Relief (Fluticasone Propionate) 9.9 Ml [place].susp 2 Sprays NS DAILY Flomax (Tamsulosin Hcl) 0.4 Mg Cap.er.24h 0.4 Mg PO DAILY Gabapentin 800 Mg Tablet 600 Mg PO TID Vitals/I & O Vital Sign - Last 24 Hours 12/22/18 12/22/18 12/22/18 12/22/18 11:44 12:12 12:30 13:00 Temp 98.0 98.0 Pulse 77 78 87 81 Resp 16 B/P (MAP) 164/79 (107) Pulse Ox 96 96 96 O2 Delivery Room Air 12/22/18 12/22/18 12/22/18 12/22/18 13:30 14:00 14:30 15:00 Pulse 69 77 80 76 Resp 16 Pulse Ox 97 94 12/22/18 12/22/18 12/22/18 12/22/18 15:30 16:00 16:30 17:00 Pulse 86 86 85 Resp 16 16 16 Pulse Ox 95 O2 Delivery Room Air 12/22/18 12/22/18 12/22/18 12/22/18 17:33 19:00 20:00 23:00 Temp 98.3 98.1 98.3 98.1 Pulse 83 81 Resp 14 16 18 B/P (MAP) 148/76 (100) 143/81 (101) Pulse Ox 98 O2 Delivery Room Air Room Air Room Air Room Air 12/23/18 12/23/18 12/23/18 03:00 04:01 07:00 Temp 98.6 98.2 98.6 98.2 Pulse 84 85 Resp 18 16 B/P (MAP) 137/76 (96) 141/85 (103) Pulse Ox 95 96 O2 Delivery Room Air Room Air Room Air Intake and Output 12/22/18 12/22/18 12/23/18 15:00 23:00 07:00 Intake Total 240 ml 0 ml Output Total 300 ml Balance 240 ml -300 ml LENY ANGLIN MD Dec 23, 2018 08:36
[2018-12-23] MEDS: ASPIRIN ENTERIC COATED 325 MG TABLET.DR. PO SCH ×2 (08:50→21:28)
[2018-12-23] MEDS: TAMSULOSIN 0.4 MG CAP.ER.24H. PO SCH (08:50)
[2018-12-23] MEDS: GABAPENTIN 300 MG CAPSULE. PO SCH ×3 (08:50→21:28)
[2018-12-23] MEDS: FLUTICASONE 50MCG/NASAL SPRAY 16GM BOTTLE. NS SCH (08:50)
[2018-12-23] MEDS: MELOXICAM 7.5 MG TABLET PO SCH (08:50)
[2018-12-23] MEDS: LIDOCAINE (700MG/PATCH) PATCH. TP SCH (09:33)
[2018-12-23] MEDS: POTASSIUM CHLORIDE 10MEQ 100 ML IV SCH ×2 (09:36→10:57)
[2018-12-23] MEDS: POTASSIUM CHLORIDE 20 MEQ TABLET.ER. PO SCH (09:37)
[2018-12-23 11:00] VITALS: BP 140/80
--- NOTE | 2018-12-23 11:08 | NUR ---
SS following for discharge planning. Pt was recently at [facility] and was discharged on 12/20/2018 to home with [facility]. [facility] unit was recommended at that time and pt refused to go. SS discussed with pt's family prior to discharge and recommended that pt's medications be put in a lock box and family and friends assist pt with medications on a daily basis. Pt's family reported understanding at that time. SS met with pt and friends in room to discuss discharge planning. SS discussed half-way unit and pt continues to adamantly decline half-way unit stating that he will return to home with [facility] again. SS discussed concern about medication management at home and discussed again with pt and pt's friends in room that if pt chose to return to home and refused half-way unit that a plan needs to be in place for pt's medication management. SS again recommended that pt's family and friends either keep pt's medications or put them in a lock box and come to the home daily to assist him with medication management. Pt and pt's friends agreed. SS discussed with physician, Dr. Borja. SS will continue to follow for discharge planning.
--- NOTE | 2018-12-23 12:00 | NUR ---
This nurse took over patient care around 0900. Patient has been appropriate with this nurse with no outbursts and is being compliant with his care. He spoke with the SW this afternoon which seemed to help ease his mind as well. Family was here for a little while speaking with patient about the fact he needs to have a lock box at his house for narcotics to prevent an overdose. [facility] nurse still at bedside but states no concerns about the patient at this time. Will continue to monitor.
[2018-12-23 15:00] VITALS: BP 135/71
--- NOTE | 2018-12-23 15:56 | NUR ---
Patient has been behaving appropriately during this shift without any concerns or complications noted. Per Nurse Sueding Machine Tender, and Dr Avila, patient is able to be taken off of 1:1 observation. Order discontinued. Patient updated and 1:1 staff redirected. Bed alarm on and call light within reach. Will continue to monitor.
[2018-12-23 19:25] VITALS: BP 140/75
[2018-12-23] MEDS: QUEtiapine 100 MG TABLET. PO SCH (21:27)
[2018-12-23] MEDS: CITALOPRAM 20 MG TABLET. PO SCH (21:28)
[2018-12-23 23:45] VITALS: BP 122/73
[2018-12-24 03:20] VITALS: BP 114/65
[2018-12-24] MEDS: PANTOPRAZOLE 40 MG TABLET.DR. PO SCH (06:11)
[2018-12-24 07:00] VITALS: BP 120/77
--- NOTE | 2018-12-24 08:02 | PDOC ---
PROGRESS NOTES Chief Complaint Chief Complaint acute metabolic encephalopathy Nausea, and vomiting, Anemia Thrombocytosis heart failure, chronic diastolic moderate cerebral diffuse atrophy.by ct head Nonobstructing left renal stone. 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 Hypokalemia History of Present Illness History of Present Illness Mr Stallworth is a 78 yo M recently discharged from hospital, readmitted after he was found by HH RN, confused, unkempt, unlivable living conditions, was initially supposed to have discharge to [place], but he insisted on [facility] instead, as he has a dog at home he wishes to care for. Now readmitted, Labs low K 3.1, rest is ok, Microcytic anemia, CT head CXR ok He was tearful and upset yesterday, and somewhat confused. Today no longer co nfused. Insistent about needing to leave to finalize a divorce and [facility] medical power of litigation attorney associate. He denies CP or SOB. Had a loose BM this morning, states it was more formed. C diff returned negative. He is still having recommendation to SNF per PT/OT, but he is again insistent upon home with home health and his family and his medical power of litigation attorney associate, an [employer] friend have agreed to help with 24/7 monitoring at home along with home health. Vitals Vitals Vital Signs Date Time Temp Pulse Resp B/P (MAP) Pulse Ox O2 Delivery O2 Flow Rate FiO2 12/24/18 03:20 98.3 82 16 114/65 (81) 95 Room Air 98.3 Physical Exam General: Alert, Cooperative, No acute distress Lungs: Clear Abdomen: Soft, Other (hyperactive BS< non tender) Extremities: No clubbing, No cyanosis, No edema, Normal pulses, No tenderness/swelling Skin: No rashes, No breakdown, No significant lesion Assessment and Plan Assessmemt and Plan Problems Medical Problems: (1) Failure to thrive in adult Status: Acute (2) Hypokalemia Status: Acute (3) Weakness Status: Acute Comment Review of Relevant I have reviewed the following items vivi (where applicable) has been applied. Labs Laboratory Tests Test 12/22/18 12:16 12/22/18 14:11 12/23/18 06:30 White Blood Count 9.4 x10^3/uL (4.0-11.0) Red Blood Count 4.36 x10^6/uL (4.30-5.70) Hemoglobin 10.9 g/dL (13.0-17.5) Hematocrit 33.3 % (39.0-53.0) Mean Corpuscular Volume 76 fL (79-100) Mean Corpuscular Hemoglobin 25 pg (25-35) Mean Corpuscular Hemoglobin Concent 33 g/dL (31-37) Red Cell Distribution Width 30.0 % (11.5-14.5) Platelet Count 440 x10^3/uL (140-400) Neutrophils (%) (Auto) 79 % (31-73) Lymphocytes (%) (Auto) 11 % (24-48) Monocytes (%) (Auto) 8 % (0-9) Eosinophils (%) (Auto) 1 % (0-3) Basophils (%) (Auto) 1 % (0-3) Neutrophils # (Auto) 7.4 x10^3/uL (1.8-7.7) Lymphocytes # (Auto) 1.0 x10^3/uL (1.0-4.8) Monocytes # (Auto) 0.8 x10^3/uL (0.0-1.1) Eosinophils # (Auto) 0.1 x10^3/uL (0.0-0.7) Basophils # (Auto) 0.1 x10^3/uL (0.0-0.2) Platelet Estimate Increased (ADEQUATE) Large Platelets Occ Polychromasia Slight Anisocytosis Marked Ovalocytes Few Schistocytes Occ Sodium Level 141 mmol/L (136-145) 142 mmol/L (136-145) Potassium Level 3.1 mmol/L (3.5-5.1) 3.2 mmol/L (3.5-5.1) Chloride Level 105 mmol/L (98-107) 109 mmol/L (98-107) Carbon Dioxide Level 27 mmol/L (21-32) 24 mmol/L (21-32) Anion Gap 9 (6-14) 9 (6-14) Blood Urea Nitrogen 18 mg/dL (8-26) 14 mg/dL (8-26) Creatinine 0.8 mg/dL (0.7-1.3) 0.8 mg/dL (0.7-1.3) Estimated GFR (Cockcroft-Gault) 94.0 94.0 BUN/Creatinine Ratio 23 (6-20) Glucose Level 87 mg/dL (70-99) 89 mg/dL (70-99) Calcium Level 9.2 mg/dL (8.5-10.1) 8.5 mg/dL (8.5-10.1) Magnesium Level 2.1 mg/dL (1.8-2.4) Iron Level 27 ug/dL (65-175) Total Iron Binding Capacity 292 ug/dL (250-450) Iron Saturation 9 % (15-34) Total Bilirubin 0.8 mg/dL (0.2-1.0) Aspartate Amino Transf (AST/SGOT) 29 U/L (15-37) Alanine Aminotransferase (ALT/SGPT) 52 U/L (16-63) Alkaline Phosphatase 60 U/L (46-116) Troponin I Quantitative < 0.017 ng/mL (0.000-0.055) TU-Hpy-N-Type Natriuretic Peptide 1446 pg/mL (0-449) Total Protein 6.8 g/dL (6.4-8.2) Albumin 3.3 g/dL (3.4-5.0) Albumin/Globulin Ratio 0.9 (1.0-1.7) Thyroid Stimulating Hormone (TSH) 0.823 uIU/mL (0.358-3.74) Urine Collection Type Unknown Urine Color Yellow Urine Clarity Clear Urine pH 6.0 Urine Specific [place] 1.020 Urine Protein Negative mg/dL (NEG-TRACE) Urine Glucose (UA) Negative mg/dL (NEG) Urine Ketones (Stick) 40 mg/dL (NEG) Urine Blood Negative (NEG) Urine Nitrite Negative (NEG) Urine Bilirubin Negative (NEG) Urine Urobilinogen Dipstick 0.2 mg/dL (0.2 mg/dL) Urine Leukocyte Esterase Negative (NEG) Urine RBC Occ /HPF (0-2) Urine WBC Occ /HPF (0-4) Urine Squamous Epithelial Cells Occ /LPF Urine Bacteria 0 /HPF (0-FEW) Urine Mucus Mod /LPF Urine Yeast Present /HPF Medications Current Medications Sodium Chloride 1,000 ml @ 125 mls/hr 1X ONCE IV Last administered on 12/22/18at 13:13; Start 12/22/18 at 13:15; Stop 12/22/18 at 21:14; Status DC Potassium Chloride (Klor-Con) 40 meq 1X ONCE PO Last administered on 12/22/18 13:18; Start 12/22/18 at 13:15; Stop 12/22/18 at 13:16; Status DC Clonidine HCl (Catapres) 0.1 mg PRN Q1HR PRN PO HYPERTENSION; Start 12/22/18 at 14:45 Temazepam (Restoril) 7.5 mg PRN QHS PRN PO INSOMNIA; Start 12/22/18 at 14:45 Ondansetron HCl (Zofran) 4 mg PRN Q6HRS PRN IV NAUSEA/VOMITING; Start 12/22/18 at 14:45 Acetaminophen (Tylenol) 500 mg PRN Q6HRS PRN PO HEADACHE / TEMP Last administered on 12/23/18 07:52; Start 12/22/18 at 14:45 Acetaminophen/ Codeine Phosphate (Tylenol #3) 1 tab PRN Q6HRS PRN PO PAIN MILD Last administered on 12/23/18 04:01; Start 12/22/18 at 14:45 Acetaminophen (Tylenol) 650 mg QID PRN PO PAIN; Start 12/22/18 at 14:45; St atus UNV Aspirin (Ecotrin) 325 mg BID PO Last administered on 12/23/18 21:28; Start 12/22/18 at 21:00 Lidocaine (Lidoderm) 1 patch DAILY TP Last administered on 12/23/18 09:33; Start 12/23/18 at 09:00 Tamsulosin HCl (Flomax) 0.4 mg DAILY PO Last administered on 12/23/18 08:50; Start 12/23/18 at 09:00 Citalopram Hydrobromide (CeleXA) 40 mg QHS PO Last administered on 12/23/18 21:28; Start 12/22/18 at 21:00 Fluticasone Propionate (Flonase) 2 spray DAILY NS Last administered on 12/23/18 08:50; Start 12/23/18 at 09:00 Gabapentin (Neurontin) 600 mg TID PO Last administered on 12/23/18 21:28; Start 12/22/18 at 21:00 Meloxicam (Mobic) 7.5 mg DAILY PO Last administered on 7/22/19at 08:50; Start 12/23/18 at 09:00 Pantoprazole Sodium (Protonix) 40 mg DAILYAC PO Last administered on 12/24/18at 06:11; Start 12/23/18 at 07:30 Quetiapine Fumarate (SEROquel) 50 mg PRN DAILY PRN PO ANXIETY / AGITATION; Start 12/22/18 at 16:00 Quetiapine Fumarate (SEROquel) 100 mg QHS PO Last administered on 12/23/18at 21:27; Start 12/22/18 at 21:00 Potassium Chloride/Water 100 ml @ 100 mls/hr Q1H IV Last administered on 12/23/18at 10:57; Start 12/23/18 at 09:30; Stop 12/23/18 at 11:29; Status DC Potassium Chloride (Klor-Con) 20 meq [id number] PO Last administered on 12/23/18at 09:37; Start 12/23/18 at 09:30 Active Scripts Active Tylenol (Acetaminophen) 325 Mg Tablet 2 Tab PO QID PRN Lidocaine PATCH (Lidocaine) 1 Each Adh..patch 1 Each TP DAILY REMOVE AFTER 12 HOURS Meloxicam 7.5 Mg Tablet 7.5 Mg PO DAILY 30 Days Take one tablet by mouth once a day Aspirin Ec (Aspirin) 325 Mg Tablet.dr 325 Mg PO BID Take one 325 mg aspirin by mouth twice a day Reported Escitalopram Oxalate 20 Mg Tablet 20 Mg PO HS Quetiapine Fumarate 50 Mg Tablet 50 Mg PO PRN DAILY PRN Seroquel (Quetiapine Fumarate) 100 Mg Tablet 100 Mg PO HS Prilosec Otc (Omeprazole Magnesium) 20 Mg Tablet.dr 40 Mg PO DAILY Flonase Allergy Relief (Fluticasone Propionate) 9.9 Ml [place].susp 2 Sprays NS DAILY Flomax (Tamsulosin Hcl) 0.4 Mg Cap.er.24h 0.4 Mg PO DAILY Gabapentin 800 Mg Tablet 600 Mg PO TID Vitals/I & O Vital Sign - Last 24 Hours 12/23/18 12/23/18 12/23/18 12/23/18 09:00 11:00 15:00 19:25 Temp 98.3 98.1 99.3 98.3 98.1 99.3 Pulse 76 85 99 Resp 16 16 20 B/P (MAP) 140/80 (100) 135/71 (92) 140/75 (96) Pulse Ox 96 96 97 O2 Delivery Room Air Room Air Room Air Room Air 12/23/18 12/23/18 12/24/18 20:00 23:45 03:20 Temp 98.1 98.3 98.1 98.3 Pulse 87 82 Resp 20 16 B/P (MAP) 122/73 (89) 114/65 (81) Pulse Ox 98 95 O2 Delivery Room Air Room Air Room Air Intake and Output 12/23/18 12/23/18 12/24/18 15:00 23:00 07:00 Intake Total 1160 ml Balance 1160 ml LENY ANGLIN MD Dec 24, 2018 08:02
[2018-12-24] MEDS ORDERED: POTA20TA4 PO (08:05)
[2018-12-24] MEDS ORDERED: LIDO700A21 TP (08:05)
[2018-12-24] MEDS: GABAPENTIN 300 MG CAPSULE. PO SCH (09:02)
[2018-12-24] MEDS: LIDOCAINE (700MG/PATCH) PATCH. TP SCH (09:02)
[2018-12-24] MEDS: ASPIRIN ENTERIC COATED 325 MG TABLET.DR. PO SCH (09:03)
[2018-12-24] MEDS: MELOXICAM 7.5 MG TABLET PO SCH (09:03)
[2018-12-24] MEDS: TAMSULOSIN 0.4 MG CAP.ER.24H. PO SCH (09:03)
[2018-12-24] MEDS: FLUTICASONE 50MCG/NASAL SPRAY 16GM BOTTLE. NS SCH (09:03)
[2018-12-24] MEDS: POTASSIUM CHLORIDE 20 MEQ TABLET.ER. PO SCH (09:04)
[2018-12-24 10:19] LABS: ALBUMIN 3.3 g/dL (3.4-5.0); ALBUMIN/GLOBULIN RATIO 1.1 (1.0-1.7); CALCIUM 9.1 mg/dL (8.5-10.1); CREATININE 0.9 mg/dL (0.7-1.3); POTASSIUM 3.8 mmol/L (3.5-5.1); TOTAL BILIRUBIN 0.7 mg/dL (0.2-1.0); TOTAL PROTEIN 6.3 g/dL (6.4-8.2)
[2018-12-24 11:00] VITALS: BP 128/76
--- NOTE | 2018-12-24 12:44 | SNU/HH DC ---
DISCHARGE WITH HOME HEALTH DISCHARGE INFORMATION: Discharge Date: Dec 24, 2018 Final Diagnosis: Problems Medical Problems: (1) Failure to thrive in adult Status: Acute (2) Hypokalemia Status: Acute (3) Weakness Status: Acute Condition on Discharge: Stable CODE STATUS: Code Status: DNR/DNI HOME HEALTH: Face to Face: I certify this patient is under my care and that I, or a nurse practitioner or physician's neurology physician assistant working with me, had a face to face encounter that meets the physician face to face encounter requirements with this patient on 12/24/18. Medical Complications: DJD, HTN Senior Living For: Assess & Educate Safety, Assess/Skilled Observatio, Medi cation Management, Pain Management, health administration teacher For Eval/Treatment: Yes Physical Therapy For: Evalulation/Treatment Occupational Therapy For: Evaluation/Treatment Home Health Aide For: Self-care QUALITY CONTROL INSPECTOR HEADING For: Community Resources Pt Meets Homebound Status: Unsteady balance w/ amb,, Extreme weakness w/ amb., Limited distance walking, Psychological condition POST DISCHARGE ORDERS: Activity Instructions for Disc: Activity as tolerated, Progressive ambulation, Walk in house Weight Bearing Status after Di: No restrictions Bathing Instructions: Shower-keep dressing dry, No Tub Bath until see DIET AFTER DISCHARGE: Cardiac Wound/Incision Care: Ice to area for comfort, Keep wound/cast CDI, Keep wound elevated, Do not change dressing CHECKS AFTER DISCHARGE: Checks after discharge: Check blood press - daily, Weigh Yourself Daily TREATMENT/EQUIPMENT ORDERS: Adaptive Equipment Issued: Four wheeled walker CERTIFICATION STATEMENT: Certification Statement: Certification Statement: Based on the above finding, I certify that this patient is confined to the home and needs intermittent group home care, physical therapy and/or speech therapy, or continues to need occupational therapy.~ This patient is under my care, and I have initiated the establishment of the plan of care.~ This patient will be followed by myself or a community physician who will periodically review the plan of care. Home Meds Active Scripts Potassium Chloride (KLOR-CON M20) 20 Meq Tab.er.prt, 20 MEQ PO DAILYWBKFT for Hypokalemia for 30 Days, #30 TAB.SR Prov:LENY ANGLIN MD 12/24/18 Lidocaine (Lidocaine PATCH ) 1 Each Adh..patch, 1 EACH TP DAILY for FOR LOCAL PAIN for 30 Days, #10 PATCH REMOVE AFTER 12 HOURS Prov:LENY ANGLIN MD 12/24/18 Acetaminophen (TYLENOL) 325 Mg Tablet, 2 TAB PO QID PRN for PAIN, #60 TAB Prov:AUSTIN RODRIGUEZ MD 12/20/18 Meloxicam (MELOXICAM) 7.5 Mg Tablet, 7.5 MG PO DAILY for control swelling and pain for 30 Days, #30 TAB Take one tablet by mouth once a day Prov:GIANNA BEASLEY MD 12/12/18 Aspirin (ASPIRIN EC) 325 Mg Tablet.dr, 325 MG PO BID for prevent blood clots, #60 TAB.SR Take one 325 mg aspirin by mouth twice a day Prov:GIANNA BEASLEY MD 12/12/18 Reported Medications Escitalopram Oxalate (ESCITALOPRAM OXALATE) 20 Mg Tablet, 20 MG PO HS for ANTI- DEPRESSANT, TAB 0 Refills 11/18/18 Quetiapine Fumarate (QUETIAPINE FUMARATE) 50 Mg Tablet, 50 MG PO PRN DAILY PRN for ANXIETY, TAB 11/18/18 Quetiapine Fumarate (SEROQUEL) 100 Mg Tablet, 100 MG PO HS for as sleep aid, TAB 11/18/18 Omeprazole Magnesium (PRILOSEC OTC) 20 Mg Tablet.dr, 40 MG PO DAILY for reflux treatment, TAB 11/18/18 Fluticasone Propionate (Flonase Allergy Relief) 9.9 Ml [place].susp, 2 SPRAYS NS DAILY for allergy relief, BOTTLE 11/18/18 Tamsulosin Hcl (FLOMAX) 0.4 Mg Cap.er.24h, 0.4 MG PO DAILY for bph, TAB 11/18/18 Gabapentin (GABAPENTIN) 800 Mg Tablet, 600 MG PO TID for neuropathy, #90 TAB 3 Refills 01/19/15 Discontinued Reported Medications Alprazolam (XANAX) 1 Mg Tablet, 1 MG PO PRN BID PRN for ANXIETY / AGITATION, TAB 0 Refills 11/18/18 Discontinued Scripts Oxycodone Hcl/Acetaminophen (OXYCODONE-ACETAMINOPHEN 10-325) 1 Each Tablet, 1-2 TAB PO Q4HRS PRN for PAIN MDD 12 tabs for 14 Days, #80 TAB Take 1-2 tablets by mouth every 4 hours as needed for pain Prov:GIANNA BEASLEY MD 12/12/18 LENY ANGLIN MD Dec 24, 2018 12:44
--- NOTE | 2018-12-24 12:49 | PDOC3 ---
Discharge Summary Visit Information Date of Admission: Dec 22, 2018 Date of Discharge: Dec 24, 2018 Admitting Diagnosis: Diarrhea, weakness, confusion, hypokalemia Final Diagnosis Problems Medical Problems: (1) Failure to thrive in adult Status: Acute (2) Hypokalemia Status: Acute (3) Weakness Status: Acute Brief Hospital Course Allergies Allergies Coded Allergies Type Severity Reaction Last Updated Verified No Known Drug Allergies 12/18/18 No Vital Signs Vital Signs Date Time Temp Pulse Resp B/P (MAP) Pulse Ox O2 Delivery O2 Flow Rate FiO2 12/24/18 11:00 97.9 81 18 128/76 (93) 97 Room Air 97.9 Lab Results Laboratory Tests Test 12/22/18 14:11 12/22/18 14:12 12/23/18 06:30 12/24/18 09:45 Urine Collection Type Unknown Urine Color Yellow Urine Clarity Clear Urine pH 6.0 Urine Specific [place] 1.020 Urine Protein Negative mg/dL (NEG-TRACE) Urine Glucose (UA) Negative mg/dL (NEG) Urine Ketones (Stick) 40 mg/dL (NEG) Urine Blood Negative (NEG) Urine Nitrite Negative (NEG) Urine Bilirubin Negative (NEG) Urine Urobilinogen Dipstick 0.2 mg/dL (0.2 mg/dL) Urine Leukocyte Esterase Negative (NEG) Urine RBC Occ /HPF (0-2) Urine WBC Occ /HPF (0-4) Urine Squamous Epithelial Cells Occ /LPF Urine Bacteria 0 /HPF (0-FEW) Urine Mucus Mod /LPF Urine Yeast Present /HPF Clostridium difficile Toxin B Gene Negative (Negative) Sodium Level 142 mmol/L (136-145) 142 mmol/L (136-145) Potassium Level 3.2 mmol/L (3.5-5.1) 3.8 mmol/L (3.5-5.1) Chloride Level 109 mmol/L (98-107) 105 mmol/L (98-107) Carbon Dioxide Level 24 mmol/L (21-32) 25 mmol/L (21-32) Anion Gap 9 (6-14) 12 (6-14) Blood Urea Nitrogen 14 mg/dL (8-26) 14 mg/dL (8-26) Creatinine 0.8 mg/dL (0.7-1.3) 0.9 mg/dL (0.7-1.3) Estimated GFR (Cockcroft-Gault) 94.0 82.0 Glucose Level 89 mg/dL (70-99) 125 mg/dL (70-99) Calcium Level 8.5 mg/dL (8.5-10.1) 9.1 mg/dL (8.5-10.1) BUN/Creatinine Ratio 16 (6-20) Total Bilirubin 0.7 mg/dL (0.2-1.0) Aspartate Amino Transf (AST/SGOT) 22 U/L (15-37) Alanine Aminotransferase (ALT/SGPT) 37 U/L (16-63) Alkaline Phosphatase 62 U/L (46-116) Total Protein 6.3 g/dL (6.4-8.2) Albumin 3.3 g/dL (3.4-5.0) Albumin/Globulin Ratio 1.1 (1.0-1.7) Laboratory Tests Test 12/24/18 09:45 Sodium Level 142 mmol/L (136-145) Potassium Level 3.8 mmol/L (3.5-5.1) Chloride Level 105 mmol/L (98-107) Carbon Dioxide Level 25 mmol/L (21-32) Anion Gap 12 (6-14) Blood Urea Nitrogen 14 mg/dL (8-26) Creatinine 0.9 mg/dL (0.7-1.3) Estimated GFR (Cockcroft-Gault) 82.0 BUN/Creatinine Ratio 16 (6-20) Glucose Level 125 mg/dL (70-99) Calcium Level 9.1 mg/dL (8.5-10.1) Total Bilirubin 0.7 mg/dL (0.2-1.0) Aspartate Amino Transf (AST/SGOT) 22 U/L (15-37) Alanine Aminotransferase (ALT/SGPT) 37 U/L (16-63) Alkaline Phosphatase 62 U/L (46-116) Total Protein 6.3 g/dL (6.4-8.2) Albumin 3.3 g/dL (3.4-5.0) Albumin/Globulin Ratio 1.1 (1.0-1.7) Brief Hospital Course Mr Stallworth is a 78 yo M recently discharged from hospital, readmitted after he was found by RN, confused, unkempt, unlivable living conditions, was initially supposed to have discharge to [facility] [place], but he insisted on [facility] instead, as he has a dog at home he wishes to care for. Now readmitted, Labs low K 3.1, rest is ok, Microcytic anemia, CT head CXR ok He was tearful and upset yesterday, and somewhat confused. Today no longer confused. Insistent about needing to leave to finalize a divorce and has contacted [facility] about revoking his medical power of finance attorney. He denies CP or SOB. Had a loose BM this morning, states it was more formed. C diff returned negative. He is still having recommendation to SNF per PT/OT, but he is again insistent upon home with home health and his family and his medical power of finance attorney, an [employer] friend have agreed to help with 24/7 monitoring at home along with home health. acute metabolic encephalopathy Nausea, and vomiting, Anemia Thrombocytosis heart failure, chronic diastolic moderate cerebral diffuse atrophy.by ct head Nonobstructing left renal stone. 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 Hypokalemia Greater than 30 minutes spent on discharge. Discharge Information Condition at Discharge: Improved Follow Up: Weeks (1) Disposition/Orders: D/C to Home w/ HH Scheduled Aspirin (Aspirin Ec) 325 Mg Tablet.dr, 325 MG PO BID for prevent blood clots, #60 Take one 325 mg aspirin by mouth twice a day Prescribed by: GIANNA BEASLEY MD on 12/12/181718 Last Action: Continued on 12/22/181445 by JOE MIRANDA Escitalopram Oxalate (Escitalopram Oxalate) 20 Mg Tablet, 20 MG PO HS for ANTI- DEPRESSANT, Ref 0 (Reported) Entered as Reported by: DOC VALENTINE on 11/18/18921 Last Action: Converted on 12/22/181445 by JOE MIRANDA Fluticasone Propionate (Flonase Allergy Relief) 9.9 Ml [place].susp, 2 SPRAYS NS DAILY for allergy relief, (Reported) Entered as Reported by: DOC VALENTINE on 11/18/18921 Last Action: Converted on 12/22/181445 by JOE MIRANDA Gabapentin (Gabapentin) 800 Mg Tablet, 600 MG PO TID for neuropathy, #90 Ref 3 (Reported) Entered as Reported by: RADHA BOB on 01/19/15 1246 Last Action: Converted on 12/22/181445 by JOE MIRANDA Lidocaine (Lidocaine PATCH ) 1 Each Adh..patch, 1 EACH TP DAILY for FOR LOCAL PAIN for 30 Days, #10 REMOVE AFTER 12 HOURS Prescribed by: LENY ANGLIN MD on 12/24/18 0805 Meloxicam (Meloxicam) 7.5 Mg Tablet, 7.5 MG PO DAILY for control swelling and pain for 30 Days, #30 Take one tablet by mouth once a day Prescribed by: GIANNA BEASLEY MD on 12/12/18 1719 Last Action: Converted on 12/22/181445 by JOE MIRANDA Omeprazole Magnesium (Prilosec Otc) 20 Mg Tablet.dr, 40 MG PO DAILY for reflux treatment, (Reported) Entered as Reported by: DOC VALENTINE on 11/18/18921 Last Action: Converted on 12/22/181445 by JOE MIRANDA Potassium Chloride (Klor-Con M20) 20 Meq Tab.er.prt, 20 MEQ PO DAILYWBKFT for Hypokalemia for 30 Days, #30 Prescribed by: LENY ANGLIN MD on 12/24/18 0805 Quetiapine Fumarate (Seroquel) 100 Mg Tablet, 100 MG PO HS for as sleep aid, (Reported) Entered as Reported by: DOC VALENTINE on 11/18/18921 Last Action: Converted on 12/22/181445 by JOE MIRANDA Tamsulosin Hcl (Flomax) 0.4 Mg Cap.er.24h, 0.4 MG PO DAILY for bph, (Reported) Entered as Reported by: DOC VALENTINE on 11/18/18921 Last Action: Continued on 12/22/181445 by JOE MIRANDA Scheduled PRN Acetaminophen (Tylenol) 325 Mg Tablet, 2 TAB PO QID PRN for PAIN, #60 Prescribed by: AUSTIN RODRIGUEZ on 12/20/18 1525 Last Action: Continued on 12/22/181445 by JOE MIRANDA Quetiapine Fumarate (Quetiapine Fumarate) 50 Mg Tablet, 50 MG PO PRN DAILY PRN for ANXIETY, (Reported) Entered as Reported by: DOC VALENTINE on 11/18/18921 Last Action: Converted on 12/22/181445 by JOE MIRANDA Discontinued Medications Alprazolam (Xanax) 1 Mg Tablet, 1 MG PO PRN BID PRN for ANXIETY / AGITATION, Ref 0 (Reported) Entered as Reported by: DOC VALENTINE on 11/18/18 0922 Oxycodone Hcl/Acetaminophen (Oxycodone-Acetaminophen 10-325) 1 Each Tablet, 1-2 TAB PO Q4HRS PRN for PAIN MDD 12 tabs for 14 Days, #80 Take 1-2 tablets by mouth every 4 hours as needed for pain Prescribed by: GIANNA BEASLEY MD on 12/12/18 1714 LENY ANGLIN MD Dec 24, 2018 12:48
[2018-12-24] MEDS ORDERED: DICL100G18 TP (14:13)
--- NOTE | 2018-12-24 14:55 | NUR ---
Discharge instructions and belongings reviewed with patient, verbalized understanding. Patient was escorted out via wheelchair by Irwin JOHNSTON.
== END 2018-12-24 11:43 | disposition home health service (06) | DRG 71 ==
LOC: ER 11:37 → 4 NORTH 14:30
PROVIDERS: ADMIT Internal Medicine; ATTEND Internal Medicine
DX: G93.41 Metabolic encephalopathy (principal); I50.32 Chronic diastolic (congestive) heart failure; E87.6 Hypokalemia; D50.9 Iron deficiency anemia, unspecified; F03.90 Unspecified dementia, unspecified severity, without behavioral disturbance, psychotic disturbance, mood disturbance, and anxiety; K21.9 Gastro-esophageal reflux disease without esophagitis; N20.0 Calculus of kidney; R62.7 Adult failure to thrive; Z96.659 Presence of unspecified artificial knee joint; Z66 Do not resuscitate; F32.9 Major depressive disorder, single episode, unspecified; M19.90 Unspecified osteoarthritis, unspecified site
CPT/HCPCS: 36415; 70450; 71045; 80048; 80053; 81001; 83540; 83550; 83735; 83880; 84443; 84484; 85025; 87045; 87177; 87493; 93005; J3480; J7030; 97110; 97116; 97530; 97535; 99285-25

== ENCOUNTER → 2020-05-18 | Outpatient (CLI) | payer OTHER ==
[~2020-05-18] MED LIST changes: +DICL100G54 TP; -OXYC-411 PO; +OXYC1TAB20 PO; +POTA20TA4 PO
[2020-05-18 14:29] LABS: BASO % 1 % (0-3); EOS # 0.1 x10^3/uL (0.0-0.7); EOS % 2 % (0-3); HEMATOCRIT 35.3 % (39.0-53.0); HEMOGLOBIN 11.5 g/dL (13.0-17.5); LYMPH # 1.1 x10^3/uL (1.0-4.8); LYMPH % 20 % (24-48); MEAN CORPUSCULAR HEMOGLOBIN 23 pg (25-35); MEAN CORPUSCULAR HGB CONC 33 g/dL (31-37); MEAN CORPUSCULAR VOLUME 72 fL (79-100); MONO # 0.5 x10^3/uL (0.0-1.1); MONO % 9 % (0-9); NEUT # 3.6 x10^3/uL (1.8-7.7); NEUT % 68 % (31-73); PLATELET COUNT 285 x10^3/uL (140-400); RED BLOOD COUNT 4.92 x10^6/uL (4.30-5.70); RED CELL DISTRIBUTION WIDTH 20.7 % (11.5-14.5); WHITE BLOOD COUNT 5.3 x10^3/uL (4.0-11.0)
[2020-05-18 14:37] LABS: PROTHROMBIN TIME PATIENT 13.1 SEC (11.7-14.0)
--- NOTE | 2020-05-18 14:40 | EKG ---
[facility] [address] [place] [address] Test Date: 2020-05-18 Test Time: 14:27:39 Pat Name: SAMANTA JIMENEZ Department: Room: Gender: Specification Writer: : 1940 Requested By: GIANNA BEASLEY Order Number: [id number] Reading MD: Hayden Jaime Measurements Intervals [place] Rate: 70 P: 53 MS: 206 QRS: 44 QRSD: 112 T: -6 QT: 394 QTc: 428 Interpretive Statements SINUS RHYTHM NON SPECIFIC ST-T WAVE CHANGES Electronically Signed On 05-19-2020 11:44:04 ADJUNCT PROFESSOR OF ENGLISH by Hayden Jaime
[2020-05-18 15:13] LABS: ALBUMIN 3.6 g/dL (3.4-5.0); C-REACTIVE PROTEIN 2.6 mg/L (0-3.3); CALCIUM 8.7 mg/dL (8.5-10.1); GFR 72.5; POTASSIUM 3.7 mmol/L (3.5-5.1)
[2020-05-18 15:45] LABS: HYPOCHROMIA SLIGHT; PLT ESTIMATE ADEQUATE (ADEQUATE)
[2020-05-18 15:46] LABS: ANISOCYTOSIS MOD; MICROCYTOSIS MOD; OVALOCYTES FEW; POIKILOCYTOSIS SLIGHT; SCHISTOCYTES OCC
--- NOTE | 2020-05-18 16:14 | RAD ---
Chest radiograph 05/18/2020 2:58 PM INDICATION: Preoperative, right knee arthroplasty COMPARISON: 12/22/2018 TECHNIQUE: Frontal and lateral views of the chest are provided. FINDINGS: The cardiomediastinal silhouette is within normal limits. There are no pleural effusions. There is no pulmonary vascular congestion. There is no pneumothorax. The lungs are clear. No significant osseous abnormality is identified. IMPRESSION: No acute cardiopulmonary process. Electronically signed by: Breanna Ramirez MD (05/18/2020 4:12 PM) [id number]
[2020-05-19 00:09] LABS: HEMOGLOBIN A1C 6.1 % (4.8-5.6)
== END ==
LOC: SURGPAT 13:36
PROVIDERS: ATTEND Orthopaedic Surgery
DX: Z01.812 Encounter for preprocedural laboratory examination (principal); M17.11 Unilateral primary osteoarthritis, right knee
CPT/HCPCS: 36415; 71046; 80048; 82040; 82306; 83036; 85025; 85610; 85730; 86140; 87641; 93005

== ENCOUNTER → 2020-06-02 | Outpatient (CLI) | payer OTHER ==
[~2020-06-02] MED LIST changes: +ALPR0.25 PO
== END ==
LOC: LAB 11:51
PROVIDERS: ATTEND Orthopaedic Surgery
DX: Z01.812 Encounter for preprocedural laboratory examination (principal); Z20.828 Contact with and (suspected) exposure to other viral communicable diseases; M19.90 Unspecified osteoarthritis, unspecified site
CPT/HCPCS: U0003

== ENCOUNTER 2020-06-07 06:01 | Observation (INO) | payer MEDICARE, OTHER ==
--- NOTE | 2020-06-06 14:40 | PDOC1 ---
History and Physical Date of Admission Date of Admission 06/07/20 Identification/Chief Complaint Chief Complaint right knee osteoarthritis pain Source Source: Chart review, Patient History of Present Illness History of Present Illness 80 year old with long history of right knee pain. Requests spinal anesthesia for TKA. Had Left TKA in 2019 with postoperative complications and anemia. Has chronic anemia. Past Medical History Cardiovascular: No pertinent hx Pulmonary: No pertinent hx CENTRAL NERVOUS SYSTEM: Other GI: GERD Heme/Onc: Anemia NOS Hepatobiliary: No pertinent hx Psych: Depression, Other Musculoskeletal: Osteoarthritis Rheumatologic: No pertinent hx Infectious disease: No pertinent hx Renal/: No pertinent hx Endocrine: No pertinent hx Past Surgical History Past Surgical History: Arthroscopy, Cataract Removal, Total knee replacement, Other Family History Family History: Family History Unknown Social History Smoke: Quit ALCOHOL: other Drugs: None Current Medications Current Medications Current Medications Ondansetron HCl (Zofran) 4 mg PRN Q6HRS PRN IV NAUSEA/VOMITING; Start 06/07/20 at 07:00; Stop 06/08/20 at 06:59 Fentanyl Citrate (Fentanyl 2ml Vial) 25 mcg PRN Q5MIN PRN IV MILD PAIN 1-3; Start 06/07/20 at 07:00; Stop 06/08/20 at 06:59 Fentanyl Citrate (Fentanyl 2ml Vial) 50 mcg PRN Q5MIN PRN IV MODERATE TO SEVERE PAIN; Start 06/07/20 at 07:00; Stop 06/08/20 at 06:59 Morphine Sulfate (Morphine Sulfate) 1 mg PRN Q10MIN PRN IV SEVERE PAIN 7-10; Start 06/07/20 at 07:00; Stop 06/08/20 at 06:59 Ringer's Solution 1,000 ml @ 30 mls/hr Q24H IV ; Start 06/07/20 at 07:00; Stop 06/07/20 at 18:59 Lidocaine HCl (Xylocaine-Mpf 1% 2ml Vial) 2 ml PRN 1X PRN ID PRIOR TO IV START; Start 06/07/20 at 07:00; Stop 06/08/20 at 06:59 Hydromorphone HCl (Dilaudid) 0.5 mg PRN Q10MIN PRN IV SEV PAIN, Second choice; Start 06/07/20 at 07:00; Stop 06/08/20 at 06:59 Prochlorperazine Edisylate (Compazine) 5 mg PACU PRN PRN IV NAUSEA, MRX1; Start 06/07/20 at 07:00; Stop 06/08/20 at 06:59 Celecoxib (CeleBREX) 400 mg 1X PREOP PRN PO PRIOR TO PROCEDURE; Start 06/07/20 at 06:00; Stop 06/07/20 at 15:00 Acetaminophen (Tylenol) 1,000 mg 1X PREOP PRN PO PRIOR TO PROCEDURE; Start 06/07/20 at 06:00; Stop 06/07/20 at 18:00 Cefazolin Sodium/ Dextrose 50 ml @ 100 mls/hr 1X PREOP PRN IV PRIOR TO PROCEDURE; Start 06/07/20 at 06:00; Stop 06/07/20 at 18:00 Morphine Sulfate 5 mg/Ketorolac Tromethamine 30 mg/Ropivacaine 60 ml/Epinephrine HCl 0.5 mg/Sodium Chloride 100 ml @ 100 mls/hr 1X PERIOP ONCE INT ART ; Start 06/07/20 at 06:00; Stop 06/07/20 at 06:59 Tranexamic Acid 1000 mg/Sodium Chloride 60 ml @ 60 mls/hr 1X PERIOP ONCE INJ ; Start 06/07/20 at 06:00; Stop 06/07/20 at 06:59 Tranexamic Acid 1000 mg/Sodium Chloride 60 ml @ 60 mls/hr 1X PERIOP ONCE INJ ; Start 06/07/20 at 08:00; Stop 06/07/20 at 08:59 Active Scripts Active Reported Cialis (Tadalafil) 5 Mg Tablet 1 Tab PO DAILY Seroquel (Quetiapine Fumarate) 100 Mg Tablet 100 Mg PO HS Prilosec Otc (Omeprazole Magnesium) 20 Mg Tablet.dr 40 Mg PO DAILY Flomax (Tamsulosin Hcl) 0.4 Mg Cap.er.24h 0.4 Mg PO DAILY Gabapentin 800 Mg Tablet 900 Mg PO TID Allergies Allergies: Coded Allergies: No Known Drug Allergies (Unverified , 12/18/18) Physical Exam General: Alert, Cooperative HEENT: Atraumatic Lungs: Normal air movement Heart: RRR Abdomen: Soft Extremities: Other (The RIGHT knee shows a mildly antalgic gait. There is varus alignment. No masses. No detectable effusion. Tenderness on the joint lines. Range of motion is 5-115 degrees. There is crepitus with range of motion, and pain at the extremes of motion. The knee is stable to varus and valgus stress without subluxation or laxity. Muscle strength is slightly weak for the quadriceps 4+/5 which may be due to pain or avoidance, and does not seem neurogenic, and the muscle tone and bulk is slightly decreased. The hamstring strength is 5/5. The skin is normal with no scars, rashes, lesions or ulcers. Light touch sensation is intact. Minimal edema.) Skin: No breakdown, No significant lesion Neuro: Sensation intact Images Images [facility] [address] [place] [address] IMAGING REPORT Signed PATIENT: SAMANTA JIMENEZ ACCOUNT: [id number] : 1940 LOCATION: [facility] AGE: 79 SEX: M EXAM STATUS: PRE CLI ORD. PHYSICIAN: GIANNA BEASLEY MD REASON: RT KNEE PAIN, NO KNOWN INJURY PROCEDURE: KNEE STANDING BILAT AP Study: 1. CR KNEE STANDING BILAT AP 2. CR KNEE RIGHT 2V Indication: Right knee pain. No known injury. Comparison: 08/26/2018 Findings: Total left knee arthroplasty construct is only partially evaluated but appears grossly intact and well fixated. Tricompartmental osteoarthrosis of the right knee with severe involvement of the medial femorotibial compartment with complete joint space collapse and resultant genu varus alignment. Joint line and patellofemoral compartment osteophyte formation. Knee joint effusion and a few loose bodies. No acute fracture. Impression: Tricompartmental osteoarthrosis with severe involvement of the medial compartment. The degree of degenerative changes are relatively similar to the 08/26/2018 comparison. No acute osseous abnormality. Electronically signed by: JOSIAH POZO MD (05/10/2020 2:53 PM) [id number] VTE Prophylaxis Ordered VTE Prophylaxis Devices: Yes VTE Pharmacological Prophylaxi: Yes Assessment/Plan Assessment/Plan Right knee osteoarthritis. He and I have discussed TKA and the RBA. He is here today for elective right total knee arthroplasty with robotic assist. Justifications for Admission Other Justification GIANNA BEASLEY MD Jun 06, 2020 14:40
[~2020-06-07] VITALS: Ht 180.3 cm; Wt 93.6 kg
[2020-06-07] VITALS (9 sets, daily range): BP systolic 104–172; BP diastolic 63–84
[~2020-06-07 06:01] MED LIST changes: +ACETAMINOPHEN 500 MG TABLET PO PRN; -ALPR0.25 PO; +CELECOXIB 100 MG CAPSULE. PO PRN; +TRANEXAMIC ACID 1,000 MG in IV NS 50ML -- 1ST BAG INJ ONE; +TV=100ml MORPHINE 5 MG, KETOROLAC 30 MG, ROPIVacaine 0.5% PF 60 ML, EPINEPH... INT ART ONE
[2020-06-07] MEDS ORDERED: PROPOFOL 10 MG/ML (20ML) VIAL. IV ONE (06:29)
[2020-06-07] MEDS ORDERED: LIDOCAINE 2% PF 5 ML VIAL. ONE (06:29)
[2020-06-07] MEDS ORDERED: ROCURONIUM 50 MG/5 ML VIAL. ONE (06:30)
[2020-06-07] MEDS ORDERED: ONDANSETRON PF 4 MG/2 ML VIAL. ONE (06:30)
[2020-06-07] MEDS ORDERED: DEXAMETHASONE SOD PHOS 4 MG/ML VIAL ONE (06:30)
[2020-06-07] MEDS ORDERED: fentaNYL PF VIAL 100 MCG/2 ML VIAL ONE (06:30)
[2020-06-07] MEDS ORDERED: TOBRAMYCIN POWDER 1.2 GM VIAL. ONE ×2 (06:58)
[2020-06-07] MEDS ORDERED: VANCOMYCIN 1 GM VIAL. ONE ×2 (06:58→07:00)
[2020-06-07] MEDS ORDERED: IV RINGERS,LACTATED 1000ML 1,000 ML IV SCH (07:00)
[2020-06-07] MEDS ORDERED: MORPHINE SULFATE 2 MG/ML VIAL. IV PRN (07:00)
[2020-06-07] MEDS ORDERED: fentaNYL PF VIAL 100 MCG/2 ML VIAL IV PRN ×2 (07:00)
[2020-06-07] MEDS ORDERED: ONDANSETRON PF 4 MG/2 ML VIAL. IV PRN (07:00)
[2020-06-07] MEDS ORDERED: LIDOCAINE 1% PF 2 ML VIAL. ID PRN (07:00)
[2020-06-07] MEDS ORDERED: PROCHLORPERAZINE 10 MG/2 ML VIAL. IV PRN (07:00)
[2020-06-07] MEDS ORDERED: HYDROmorphone 2 MG/ML VIAL IV PRN (07:00)
[2020-06-07] MEDS ORDERED: MIDAZOLAM HCL/PF 2 MG/2 ML VIAL. ONE (07:09)
[2020-06-07] MEDS ORDERED: methylPREDNISolone ACETATE 40 MG/ML VIAL. ONE (07:35)
[2020-06-07] MEDS ORDERED: BUPIVACAINE MPF 0.25% 30 ML VIAL. ONE (07:35)
[2020-06-07] MEDS ORDERED: TRANEXAMIC ACID 1,000 MG in IV NS 50ML -- 2ND BAG INJ ONE (08:00)
--- NOTE | 2020-06-07 09:53 | PDOC4 ---
Operative Note Operative Note Date of Procedure: June 07, 2020 Pre-Op Diagnosis: Unilateral primary osteoarthritis, right knee. M17.11 Primary osteoarthritis, right hand, M19.041 Post-Op Diagnosis: same Procedure: right total knee arthroplasty with patella resurfacing, robotic assisted, CPT 07953 right hand middle finger metacarpophalangeal joint, arthrocentesis, aspiration and cortisone injection, small joint without ultrasound guidance, CPT 99778 Surgeon: Gianna Jeffrey MD Boat Mechanic: JOSÉ ANTONIO Hwang Anesthesia: Spinal EBL: 100 mL Specimens Obtained: right knee bone and soft tissue Complications: none Drains: Hemovac plus pain catheter Tourniquet time: 61 Minutes Tourniquet Pressure: 300 mm Hg Indications for Procedure: Knee arthritis pain, affecting quality of life, unrelieved by nonoperative management Findings: Severe osteoarthritis with bone on bone contact medially with full thickness cartilage loss in the patellofemoral and lateral compartments. Immediately preoperatively the patient also complained of painful osteoarthritis of the right hand metacarpophalangeal joint which might interfere with his use of a walker postoperatively. We discussed a cortisone injection and he agreed, and that was added to the consent form. Implants: Montes [employer] Nephew Journey II Total Knee System, Size 5 right bicruciate stabilized Journey II BCS cobalt chrome femoral component, size 5 right Journey nonporous tibial baseplate, size 5-6 11 mm right Journey II BCS XLPE articular insert, 35 mm oval Olivia II resurfacing patellar component Procedure in Detail: The patient was identified in the preoperative holding area, and the correct ri ght lower extremity was marked by me. The patient was taken to the operating room where the patient was anesthetized by the Department of Anesthesia. A spinal anesthetic was used. A "time-out" procedure was performed. Preoperative antibiotics were given intravenously. The right hand metacarpophalangeal joint was prepared with chlorhexidine, and then injected with 1 mL of bupivacaine and 1 mL of 40 mg Depo-Medrol, under sterile technique, and without difficulty. Tranexamic acid 1 g was given intravenously for intraoperative hemostasis. The patient was positioned supine on the operative table with a tourniquet on the upper right thigh. A right hip bump and heel bump were attached to the operating table for later intraoperative positioning. The right lower limb was thoroughly scrubbed, then sterile Chloraprep solution was applied, and the limb was draped in sterile fashion. The operating team wore exhaust ventilated hoods with Peeky Personal Protection Toga Zippered Peel-Away protection system. An impervious stockinet and an adhesive drape were used such that the skin was entirely covered. The limb was exsanguinated with an Esmarch bandage, and the tourniquet was inflated. The timeout was repeated. A midline skin incision was made with a scalpel using the patella and tibial tubercle as landmarks. Electrocautery was used for hemostasis. My assistant account executive used rake retractors and a laparotomy sponge. A medial parapatellar arthrotomy incision was used with extension into the distal quadriceps tendon. The patella was retracted laterally and Hohmann retractors were now used by my assistant account executive. Excess synovium, the menisci, and the cruciate ligaments were resected sharply. A periarticular multimodal ropivacaine anesthetic injection was used in the suprapatellar pouch and distal quadriceps muscle. The patella was everted and exposed. The patella thickness was measured with a caliper, and then cut freehand with a saw, using caliper measurements to assess the resection. The lateral retinaculum was partially released from the lateral patella using electrocautery. Rongeurs were used to make sure there were no remaining exposed patellar osteophytes medially or laterally. The patella was sized, and then drilled for an oval three-peg patella component. The tibial tracker array for the NAVIO system was applied to the tibial crest four finger breadths below the tibial tubercle, using percutaneous incisions and bicortical pins. The femoral tracker array was applied outside of the original incision using two separate stab incisions using bicortical pins. Checkpoint verification pins were applied to the femur and tibia. Using the point probe, the medial and lateral malleoli were localized and the locations were stored. The center of the tibia was noted at the anterior cruciate ligament insertion and stored. The center of the femur was marked at the intersection of Whitesidess line with the transepicondylar axis. The hip center calculation was performed with range of motion of the hip. The femur neutral position was identified, and simulated weightbearing was performed with axial compression on the foot. Range of motion without stress was performed and the data collected. Range of motion with valgus stress, and range of motion with varus stress data collection was also performed. Rotational references include the Whitesidess line, and the trans-epicondylar axis. The femoral articular surface was now mapped in 3 dimensions using the point probe and digital data collected. The tibial condyle articular surfaces and cortical edges were mapped in 3 dimensions using the point probe including the medial and lateral tibial plateau. Implant planning was now performed on-screen with manipulation of the implant sizes, cut thicknesses and gaps, component rotation, component flexion/extension and component varus/valgus until satisfactory ligament balance, alignment and stability of the knee was expected throughout the range of motion. A medial release was required, using a 10 blade scalpel, and a Nolan elevator to elevate the medial structures from the upper medial tibia. My assistant account executive held a Hohmann retractor, a medial Z-retractor, and an [place] retractor to protect the medial and lateral collateral ligaments, the patellar tendon, the skin and the other soft tissues. The point probe was used to confirm the location of the checkpoint verification pins. The distal femoral surface was now prepared using the Anspach shiva with footpedal, and the NAVIO handpiece for bone removal to the previously planned distal femoral resection. The crosshairs at the pin locations were marked by using a mallet and the point probe for definitive location. A 5-in-1 Journey II cutting guide was then applied and the position was checked with the virtual elidia wing from the NAVIO to ensure proper placement as the pins were applied. The posterior, anterior, and all chamfer cuts were made with the oscillating saw. Excess bone was removed with an osteotome and rongeurs. The tibial cutting guide was applied, positioned using the NAVIO virtual elidia wing, and secured to the upper tibia using three pins at the previously planned location. The virtual elidia wing was used to confirm the resection depth, slope and coronal alignment. The upper tibia was cut made with an oscillating saw. My assistant account executive held Hohmann retractors and a posterior cruciate ligament retractor to protect the medial and lateral collateral ligaments, the patellar tendon, the skin, the peroneal nerve and the other soft tissues. The upper tibia was sized with a trial baseplate. The posterior compartment was cleared of osteophytes and loose bodies. The periarticular anesthetic injection was used in the posterior compartment. The box cut for a posterior stabilized component was made. A preliminary reduction was performed with a trial femur, trial tibial baseplate and trial polyethylene. The NAVIO system was used to confirm range of motion, and postoperative stressed gap assessment. The stability was assessed using different thicknesses of tibial articular surface to find satisfactory stability and good range of motion. The rotation of the tibial component was marked on the upper tibia. Final trial reduction was now performed verifying patella tracking and tibiofemoral stability and alignment. The bone pins and tracker arrays were removed, and the checkpoint verification pins were removed. The tibia preparation was completed with a drill, saw, and fin punch at the p reviously noted rotation. The final implants were verified and opened. Outer gloves were changed by the operating team. Betadine lavage was used. The bone cuts were irrigated with saline using the Slide InterPulse device and then dried with suction and laparotomy sponges. Two packages of Montes + Nephew Rally HV bone cement were mixed in powdered form with Vancomycin 1gm and Tobramycin 1.2 gm, and then vacuum-mixed with the monomer, and placed into a cement gun. The cut surfaces of the bone were thoroug hly dried with suction and with laparotomy sponges for cement interdigitation. The final components were cemented into place. The knee was kept at full extension while the cement hardened, and excess cement was removed. Tranexamic acid 1 g was redosed intravenously for additional intraoperative hemostasis. The tourniquet was released, and electrocautery was used for hemostasis. A final periarticular anesthetic injection was used for pain relief. The bone pin sites on the tibial crest were closed with #3-0 Nylon sutures. A final check of [id number] and stability was made, and the polyethylene implant final size was chosen. The polyethylene implant was secured to the tibial baseplate, and the knee was reduced a final time and range of motion and stability was confirmed. Thorough irrigation was used. A pain catheter, and a 15 Fr Hemovac were inserted. Topical Vancomycin 1 gm was used during the closure. The arthrotomy was closed with interrupted [id number] #1 Vicryl suture. The subcutaneous tissues were approximated initially with #2-0 Vicryl inverted interrupted sutures by my assistant account executive. Next the subcuticular layer was approximated in a running fashion with #3-0 STRATAFIX suture by my assistant account executive. The skin incision was then covered and reinforced by my assistant account executive with Acticoat, followed by a LATIA single use negative pressure wound therapy dressing Soft roll and an Terrell wrap were applied. Needle and sponge counts were correct. There were no apparent complications. The patient returned to the recovery room in stable condition. GIANNA JEFFREY MD Jun 07, 2020 09:53
[2020-06-07] MEDS ORDERED: PROCHLORPERAZINE 5 MG TABLET. PO PRN (10:00)
[2020-06-07] MEDS ORDERED: ZOLPIDEM 5 MG TABLET. PO PRN (10:00)
[2020-06-07] MEDS ORDERED: fentaNYL PF VIAL 100 MCG/2 ML VIAL IVP PRN (10:00)
[2020-06-07] MEDS ORDERED: MORPHINE SULFATE 2 MG/ML VIAL. IVP PRN (10:00)
[2020-06-07] MEDS ORDERED: METOCLOPRAMIDE HCL 10 MG/2 ML VIAL. IVP PRN (10:00)
[2020-06-07] MEDS ORDERED: CALCIUM CARBONATE 500 MG TAB.CHEW PO PRN (10:00)
[2020-06-07] MEDS ORDERED: DEXTROSE 50% 25 GM / 50ML DISP.SYRIN. IV PRN (10:00)
[2020-06-07] MEDS ORDERED: oxyCODONE/APAP 5/325 1 TAB TABLET PO PRN ×2 (10:00→11:30)
[2020-06-07] MEDS ORDERED: diphenhydrAMINE 50 MG/ML VIAL IVP PRN (10:00)
[2020-06-07] MEDS ORDERED: 0.9 % SODIUM CHLORIDE 10 ML DISP.SYRIN. IV PRN (10:00)
--- NOTE | 2020-06-07 10:37 | RAD ---
EXAM: Right knee, 2 views. HISTORY: Arthroplasty. COMPARISON: None. FINDINGS: 2 views of the right knee are obtained. There is a right knee arthroplasty in expected posi tion. There is soft tissue gas, joint fluid and a drain due to recent surgery. There are postoperativ e track haywood within the distal femur and proximal tibia. IMPRESSION: Right knee arthroplasty in expected position. Electronically signed by: Ana Maria Mora MD (06/07/2020 10:34 AM) [id number]
--- NOTE | 2020-06-07 10:40 | NUR ---
Arrived to unit by bed from PACU. Alert and oriented x's 4. No c/o at this time. Right leg elevated on pillow with ice pack. Right knee dressing is D/i with IAC, Hemovac drain and LATIA. Pedal pulses + bilaterally, warm touch and able to wiggle toes easily. IVF's intact and infusing. SCD on left leg and BENITO on right foot. Oriented to room and controls. Side rails up x's 2 with call light in reach. Brother at bedside. Cont. monitor.
[2020-06-07] MEDS ORDERED: ALPR0.25 PO (11:22)
--- NOTE | 2020-06-07 11:25 | PDOC ---
Provider Note Date of Service: DATE: 06/07/20 TIME: 11:25 Provider Note Postoperative x-ray report reviewed and images independently reviewed. Satisfactory total knee arthroplasty without apparent complications. Cemented components, patella resurfacing is present. [facility] [address] [place] [address] IMAGING REPORT Signed PATIENT: SAMANTA JIMENEZ ACCOUNT: [id number] : 1940 LOCATION: SURG AGE: 80 SEX: M EXAM STATUS: REG [facility] [place] ORD. PHYSICIAN: GIANNA BEASLEY MD REASON: POST OP RIGHT KNEE ARTHROPLASTY PROCEDURE: KNEE RIGHT 2V EXAM: Right knee, 2 views. HISTORY: Arthroplasty. COMPARISON: None. FINDINGS: 2 views of the right knee are obtained. There is a right knee arthroplasty in expected position. There is soft tissue gas, joint fluid and a drain due to recent surgery. There are postoperative track haywood within the distal femur and proximal tibia. IMPRESSION: Right knee arthroplasty in expected position. Electronically signed by: Ana Maria España MD (06/07/2020 10:34 AM) [id number] DICTATED and SIGNED BY: ANA MARIA ESPAÑA MD DATE: 06/07/20 1034 Justifications for Admission Other Justification GIANNA BEASLEY MD Jun 07, 2020 11:25
[2020-06-07] MEDS ORDERED: ALPRAZolam 0.25 MG TABLET PO PRN (11:30)
[2020-06-07] MEDS: PANTOPRAZOLE 40 MG TABLET.DR. PO SCH (11:53)
[2020-06-07] MEDS: TAMSULOSIN 0.4 MG CAP.ER.24H. PO SCH (11:53)
[2020-06-07] MEDS: ACETAMINOPHEN 500 MG TABLET PO PRN ×2 (11:53→21:28)
[2020-06-07] MEDS: SENNOSIDES/DOCUSATE 8.6/50MG TABLET. PO SCH (11:53)
[2020-06-07] MEDS: IV NORMAL SALINE 1000ML BAG 1,000 ML IV SCH (11:57)
[2020-06-07] MEDS: ONDANSETRON PF 4 MG/2 ML VIAL. IVP SCH ×3 (12:00→23:59)
[2020-06-07] MEDS: ONDANSETRON ODT 4 MG TAB.RAPDIS. PO SCH ×2 (12:00→17:14)
[2020-06-07] MEDS: GABAPENTIN 300 MG CAPSULE. PO SCH ×2 (14:00→21:28)
[2020-06-07] MEDS: FERROUS SULFATE 325 MG TABLET. PO SCH (17:32)
[2020-06-07] MEDS: KETOROLAC 30MG VIAL 30 MG, BUPIVACAINE MPF 0.25% 20 ML, EPINEPHrine 0.5 MG in TOTAL VOL... INT ART SCH ×2 (17:33→18:00)
--- NOTE | 2020-06-07 17:45 | NUR ---
IAC adapter found disconnected and dc'd the whole thing.
[2020-06-07] MEDS: ASPIRIN ENTERIC COATED 325 MG TABLET.DR. PO SCH (21:27)
[2020-06-07] MEDS: QUEtiapine 100 MG TABLET. PO SCH (21:28)
[2020-06-08 02:55] VITALS: BP 93/64
[2020-06-08] MEDS ORDERED: MAGNESIUM HYDROXIDE 2,400 MG/30 ML ORAL.SUSP. PO PRN (06:00)
[2020-06-08] MEDS: KETOROLAC 30MG VIAL 30 MG, BUPIVACAINE MPF 0.25% 20 ML, EPINEPHrine 0.5 MG in TOTAL VOL... INT ART SCH (06:00)
[2020-06-08] MEDS: ONDANSETRON PF 4 MG/2 ML VIAL. IVP SCH (06:00)
[2020-06-08] MEDS: ONDANSETRON ODT 4 MG TAB.RAPDIS. PO SCH ×2 (06:00)
[2020-06-08] MEDS: ACETAMINOPHEN 500 MG TABLET PO PRN ×3 (06:40→20:53)
[2020-06-08] MEDS: PANTOPRAZOLE 40 MG TABLET.DR. PO SCH (06:40)
[2020-06-08 06:47] VITALS: BP 122/79
[2020-06-08 09:20] LABS: BASO % 0 % (0-3); EOS % 1 % (0-3); HEMATOCRIT 29.7 % (39.0-53.0); HEMOGLOBIN 9.2 g/dL (13.0-17.5); LYMPH # 0.6 x10^3/uL (1.0-4.8); LYMPH % 8 % (24-48); MEAN CORPUSCULAR HEMOGLOBIN 22 pg (25-35); MEAN CORPUSCULAR HGB CONC 31 g/dL (31-37); MEAN CORPUSCULAR VOLUME 71 fL (79-100); MONO # 0.4 x10^3/uL (0.0-1.1); MONO % 6 % (0-9); NEUT # 6.4 x10^3/uL (1.8-7.7); NEUT % 86 % (31-73); PLATELET COUNT 266 x10^3/uL (140-400); RED CELL DISTRIBUTION WIDTH 20.4 % (11.5-14.5); WHITE BLOOD COUNT 7.4 x10^3/uL (4.0-11.0)
[2020-06-08] MEDS: FERROUS SULFATE 325 MG TABLET. PO SCH (09:20)
[2020-06-08] MEDS: ASPIRIN ENTERIC COATED 325 MG TABLET.DR. PO SCH (09:20)
[2020-06-08] MEDS: CELECOXIB 100 MG CAPSULE. PO SCH (09:20)
[2020-06-08] MEDS: TAMSULOSIN 0.4 MG CAP.ER.24H. PO SCH (09:20)
[2020-06-08] MEDS: GABAPENTIN 300 MG CAPSULE. PO SCH ×3 (09:20→20:52)
[2020-06-08] MEDS: MULTIVITAMIN with MINERAL TABLET. PO SCH (09:20)
[2020-06-08] MEDS: SENNOSIDES/DOCUSATE 8.6/50MG TABLET. PO SCH (09:20)
[2020-06-08] MEDS: IV NORMAL SALINE 1000ML BAG 1,000 ML IV SCH (10:00)
[2020-06-08 10:09] LABS: % LYMPHS 11 % (24-48); % MONOS 5 % (0-10); % SEGS 84 % (35-66)
[2020-06-08 10:10] LABS: ANISOCYTOSIS SLIGHT; PLT ESTIMATE ADEQUATE (ADEQUATE)
[2020-06-08 10:11] LABS: HYPOCHROMIA SLIGHT; OVALOCYTES OCC; SCHISTOCYTES OCC; TARGET CELLS OCC; TEAR DROP CELLS OCC
[2020-06-08] MEDS ORDERED: ONDANSETRON PF 4 MG/2 ML VIAL. IVP PRN (12:00)
[2020-06-08] MEDS ORDERED: ONDANSETRON ODT 4 MG TAB.RAPDIS. PO PRN (12:00)
--- NOTE | 2020-06-08 13:20 | PDOC ---
PROGRESS NOTES Date of Service DATE: 06/08/20 TIME: 13:18 Subjective Subjective Doing well, wants to stop oral iron. Xanax added. Wants to go home but not yet independent in PT. Objective Vital Signs Vital Signs Date Time Temp Pulse Resp B/P (MAP) Pulse Ox O2 Delivery O2 Flow Rate FiO2 06/08/20 08:15 Non-Rebreather 06/08/20 06:47 98.4 81 20 122/79 (93) 95 98.4 Physical Exam LATIA dressing working. LATIA has spots of bloody drainage. Hemovac and pain catheter have been removed. Calf soft and NT. Homans neg. Able to DF and plantarflex foot with no evidence of neurovascular injury nor compartment syndrome. No blisters. Minimal erythema. Moderate swelling as expected. Labs Laboratory Tests Test 06/08/20 08:56 White Blood Count 7.4 x10^3/uL (4.0-11.0) Red Blood Count 4.20 x10^6/uL (4.30-5.70) Hemoglobin 9.2 g/dL (13.0-17.5) Hematocrit 29.7 % (39.0-53.0) Mean Corpuscular Volume 71 fL (79-100) Mean Corpuscular Hemoglobin 22 pg (25-35) Mean Corpuscular Hemoglobin Concent 31 g/dL (31-37) Red Cell Distribution Width 20.4 % (11.5-14.5) Platelet Count 266 x10^3/uL (140-400) Neutrophils (%) (Auto) 86 % (31-73) Lymphocytes (%) (Auto) 8 % (24-48) Monocytes (%) (Auto) 6 % (0-9) Eosinophils (%) (Auto) 1 % (0-3) Basophils (%) (Auto) 0 % (0-3) Neutrophils # (Auto) 6.4 x10^3/uL (1.8-7.7) Lymphocytes # (Auto) 0.6 x10^3/uL (1.0-4.8) Monocytes # (Auto) 0.4 x10^3/uL (0.0-1.1) Eosinophils # (Auto) 0.0 x10^3/uL (0.0-0.7) Basophils # (Auto) 0.0 x10^3/uL (0.0-0.2) Segmented Neutrophils % 84 % (35-66) Lymphocytes % 11 % (24-48) Monocytes % 5 % (0-10) Platelet Estimate Adequate (ADEQUATE) Hypochromasia Slight Anisocytosis Slight Target Cells Occ Tear Drop Cells Occ Ovalocytes Occ Homer Cells Schistocytes Occ Laboratory Tests Test 06/08/20 08:56 White Blood Count 7.4 x10^3/uL (4.0-11.0) Red Blood Count 4.20 x10^6/uL (4.30-5.70) Hemoglobin 9.2 g/dL (13.0-17.5) Hematocrit 29.7 % (39.0-53.0) Mean Corpuscular Volume 71 fL (79-100) Mean Corpuscular Hemoglobin 22 pg (25-35) Mean Corpuscular Hemoglobin Concent 31 g/dL (31-37) Red Cell Distribution Width 20.4 % (11.5-14.5) Platelet Count 266 x10^3/uL (140-400) Neutrophils (%) (Auto) 86 % (31-73) Lymphocytes (%) (Auto) 8 % (24-48) Monocytes (%) (Auto) 6 % (0-9) Eosinophils (%) (Auto) 1 % (0-3) Basophils (%) (Auto) 0 % (0-3) Neutrophils # (Auto) 6.4 x10^3/uL (1.8-7.7) Lymphocytes # (Auto) 0.6 x10^3/uL (1.0-4.8) Monocytes # (Auto) 0.4 x10^3/uL (0.0-1.1) Eosinophils # (Auto) 0.0 x10^3/uL (0.0-0.7) Basophils # (Auto) 0.0 x10^3/uL (0.0-0.2) Segmented Neutrophils % 84 % (35-66) Lymphocytes % 11 % (24-48) Monocytes % 5 % (0-10) Platelet Estimate Adequate (ADEQUATE) Hypochromasia Slight Anisocytosis Slight Target Cells Occ Tear Drop Cells Occ Ovalocytes Occ [place]omb Cells Schistocytes Occ Imaging Postop x-rays and report reviewed by me. Satisfactory TKA without apparent complications. Assessment Assessment POD 1 after TKA Plan Plan of Care Needs to stay in hospital for more PT at this time. Continue DVT prophylaxis and PT. Discharge planning for tomorrow. Justicifation of Admission Dx: Justifications for Admission: Justification of Admission Dx: Yes GIANNA BEASLEY MD Jun 08, 2020 13:20
[2020-06-08] MEDS ORDERED: ALPRAZolam 1 MG TABLET PO PRN (13:30)
[2020-06-08] MEDS ORDERED: BISACODYL 10 MG SUPP.RECT. PR PRN (16:00)
[2020-06-08 18:55] VITALS: BP 106/61
[2020-06-08] MEDS: ASPIRIN ENTERIC COATED 81 MG TABLET.DR. PO SCH (20:53)
[2020-06-08] MEDS: QUEtiapine 100 MG TABLET. PO SCH (20:53)
[2020-06-09] MEDS: ACETAMINOPHEN 500 MG TABLET PO PRN ×2 (04:32→12:00)
--- NOTE | 2020-06-09 04:36 | NUR ---
Jenny dressing changed due to saturation. Bordered gauze put over Hemovac site. "I slept good." Ambulated to toilet w/o issue. Tylenol given per request.
--- NOTE | 2020-06-09 06:42 | NUR ---
Has been sleeping. Ambulated w/o difficulty to toilet.
[2020-06-09 06:46] VITALS: BP 106/58
[2020-06-09] MEDS: TAMSULOSIN 0.4 MG CAP.ER.24H. PO SCH (08:33)
[2020-06-09] MEDS: MULTIVITAMIN with MINERAL TABLET. PO SCH (08:33)
[2020-06-09] MEDS: SENNOSIDES/DOCUSATE 8.6/50MG TABLET. PO SCH (08:34)
[2020-06-09] MEDS: PANTOPRAZOLE 40 MG TABLET.DR. PO SCH (08:34)
[2020-06-09] MEDS: GABAPENTIN 300 MG CAPSULE. PO SCH (08:34)
[2020-06-09] MEDS: ASPIRIN ENTERIC COATED 81 MG TABLET.DR. PO SCH (08:34)
[2020-06-09] MEDS: CELECOXIB 100 MG CAPSULE. PO SCH (08:34)
--- NOTE | 2020-06-09 09:00 | NUR ---
Anxious to go home today. Up in chair. No pain at present time. Cont. monitor.
--- NOTE | 2020-06-09 11:08 | PDOC3 ---
Discharge Summary Visit Information Date of Admission: Jun 07, 2020 Date of Discharge: Jun 09, 2020 Final Diagnosis Osteoarthritis right knee. Aftercare after total knee arthroplasty. Brief Hospital Course Allergies Allergies Coded Allergies Type Severity Reaction Last Updated Verified No Known Drug Allergies 06/07/20 No Vital Signs Vital Signs Date Time Temp Pulse Resp B/P (MAP) Pulse Ox O2 Delivery O2 Flow Rate FiO2 06/09/20 07:35 Room Air 06/09/20 06:46 97.7 83 19 106/58 (74) 99 97.7 Lab Results Laboratory Tests Test 06/08/20 08:56 White Blood Count 7.4 x10^3/uL (4.0-11.0) Red Blood Count 4.20 x10^6/uL (4.30-5.70) Hemoglobin 9.2 g/dL (13.0-17.5) Hematocrit 29.7 % (39.0-53.0) Mean Corpuscular Volume 71 fL (79-100) Mean Corpuscular Hemoglobin 22 pg (25-35) Mean Corpuscular Hemoglobin Concent 31 g/dL (31-37) Red Cell Distribution Width 20.4 % (11.5-14.5) Platelet Count 266 x10^3/uL (140-400) Neutrophils (%) (Auto) 86 % (31-73) Lymphocytes (%) (Auto) 8 % (24-48) Monocytes (%) (Auto) 6 % (0-9) Eosinophils (%) (Auto) 1 % (0-3) Basophils (%) (Auto) 0 % (0-3) Neutrophils # (Auto) 6.4 x10^3/uL (1.8-7.7) Lymphocytes # (Auto) 0.6 x10^3/uL (1.0-4.8) Monocytes # (Auto) 0.4 x10^3/uL (0.0-1.1) Eosinophils # (Auto) 0.0 x10^3/uL (0.0-0.7) Basophils # (Auto) 0.0 x10^3/uL (0.0-0.2) Segmented Neutrophils % 84 % (35-66) Lymphocytes % 11 % (24-48) Monocytes % 5 % (0-10) Platelet Estimate Adequate (ADEQUATE) Hypochromasia Slight Anisocytosis Slight Target Cells Occ Tear Drop Cells Occ Ovalocytes Occ Homer Cells Schistocytes Occ Brief Hospital Course 80 year old who presented with knee osteoarthritis, for elective total knee arthroplasty. The patient underwent total knee arthroplasty under general anesthesia the day of admission. Perioperative antibiotics and DVT prophylaxis were used. Postoperatively physical therapy and case management were consulted. The patient progressed and is stable for discharge. Discharge Information Follow Up: Weeks Disposition/Orders: D/C to Home w/ HH Scheduled Gabapentin (Gabapentin), 900 MG PO TID, (Reported) Omeprazole Magnesium (Prilosec Otc), 40 MG PO DAILY, (Reported) Quetiapine Fumarate (Seroquel), 100 MG PO HS, (Reported) Tadalafil (Cialis), 1 TAB PO DAILY, (Reported) Tamsulosin Hcl (Flomax), 0.4 MG PO DAILY, (Reported) Scheduled PRN Alprazolam (Xanax), 1 TAB PO HS PRN for ANXIETY / AGITATION, (Reported) Patient Instructions Patient Instructions Continue to weight bearing as tolerated with walker. Follow up with Dr. Jeffery's office. Call for appointment unless already scheduled. Continue enteric coated aspirin 325 mg by mouth twice a day for 30 days to prevent blood clots. Justicifation of Admission Dx: Justifications for Admission: Justification of Admission Dx: Yes GIANNA JEFFREY MD Jun 09, 2020 11:08
--- NOTE | 2020-06-09 11:10 | SNU/HH DC ---
DISCHARGE WITH HOME HEALTH DISCHARGE INFORMATION: Discharge Date: Jun 09, 2020 Final Diagnosis: Osteoarthritis right knee. Aftercare after total knee arthroplasty. Condition on Discharge: Stable CODE STATUS: Code Status: Full HOME HEALTH: Face to Face: I certify this patient is under my care and that I, or a nurse practitioner or physician's animal assistant working with me, had a face to face encounter that meets the physician face to face encounter requirements with this patient on 06/08/2020. RN For Eval/Treatment: No Physical Therapy For: Evalulation/Treatment Occupational Therapy For: Evaluation/Treatment Pt Meets Homebound Status: Poor coordination w/ amb., Limited distance walking POST DISCHARGE ORDERS: Activity Instructions for Disc: Activity as tolerated, Progressive ambulation, Walk in house Weight Bearing Status after Di: No restrictions Bathing Instructions: Shower-keep dressing dry, No Tub Bath until see Wound/Incision Care: Ice to area for comfort, Keep wound/cast CDI, Keep wound elevated, Do not change dressing CHECKS AFTER DISCHARGE: Checks after discharge: Weigh Yourself Daily FOLLOW-UP: Additional Instructions: For pain, the patient would like to take Tylenol 1000 mg every 6 hours. Xanax 1 mg 3 times a day as needed. Both of those were sent to [facility]. TREATMENT/EQUIPMENT ORDERS: Adaptive Equipment Issued: None, Front wheeled walker CERTIFICATION STATEMENT: Certification Statement: Certification Statement: Based on the above finding, I certify that this patient is confined to the home and needs intermittent correction care, physical therapy and/or speech therapy, or continues to need occupational therapy.~ This patient is under my care, and I have initiated the establishment of the plan of care.~ This patient will be followed by myself or a community physician who will periodically review the plan of care. Home Meds Reported Medications Alprazolam (XANAX) 0.25 Mg Tablet, 1 TAB PO HS PRN for ANXIETY / AGITATION, #30 TAB 06/07/20 Tadalafil (CIALIS) 5 Mg Tablet, 1 TAB PO DAILY for ED, #30 TAB 5 Refills 05/18/20 Quetiapine Fumarate (SEROQUEL) 100 Mg Tablet, 100 MG PO HS for as sleep aid, TAB 11/18/18 Omeprazole Magnesium (PRILOSEC OTC) 20 Mg Tablet.dr, 40 MG PO DAILY for reflux treatment, TAB 11/18/18 Tamsulosin Hcl (FLOMAX) 0.4 Mg Cap.er.24h, 0.4 MG PO DAILY for bph, TAB 11/18/18 Gabapentin (GABAPENTIN) 800 Mg Tablet, 900 MG PO TID for neuropathy, #90 TAB 3 Refills 01/19/15 GIANNA BEASLEY MD Jun 09, 2020 11:10
[2020-06-09] MEDS ORDERED: ASPI325T11 PO (11:36)
--- NOTE | 2020-06-09 12:05 | NUR ---
Discharge instructions given with prescription electronically. Home health has been arranged. Answered questions and concerns. Verbalized understanding. Pt dc'd home accompanied by brother. Escorted out by w/c.
[2020-06-09 12:16] LABS: HEMATOCRIT 27.5 % (39.0-53.0); HEMOGLOBIN 8.6 g/dL (13.0-17.5)
== END 2020-06-09 12:05 | disposition home or self-care (01) ==
LOC: SURG 06:01 → 4 SOUTHEST 09:57
PROVIDERS: ADMIT Orthopaedic Surgery; ATTEND Orthopaedic Surgery
DX: M17.11 Unilateral primary osteoarthritis, right knee (principal); M19.041 Primary osteoarthritis, right hand; D64.9 Anemia, unspecified; K21.9 Gastro-esophageal reflux disease without esophagitis; F32.9 Major depressive disorder, single episode, unspecified; Z98.49 Cataract extraction status, unspecified eye; Z96.652 Presence of left artificial knee joint; Z87.891 Personal history of nicotine dependence
CPT/HCPCS: 20600; 27447; 36415; 73560; 85007; 85014; 85018; 85025; 86850; 86900; 86901; 96361; 96365; 96366; 97110; 97116; 97150; 97162; 97166; 97530; 97535; A4461; C1713; C1769; G0378; G0379; J0171; J0690; J1030; J1885; J2250; J2270; J2704; J2795; J3010; J3260; J3370; J3490; J7030; 88305; 88311; J1100; J2405

== ENCOUNTER → 2020-10-19 | Outpatient (CLI) | payer MEDICARE, OTHER ==
[~2020-10-19] MED LIST changes: -ACETAMINOPHEN 500 MG TABLET PO PRN; +ALPR0.25 PO; -CELECOXIB 100 MG CAPSULE. PO PRN; -TRANEXAMIC ACID 1,000 MG in IV NS 50ML -- 1ST BAG INJ ONE; -TV=100ml MORPHINE 5 MG, KETOROLAC 30 MG, ROPIVacaine 0.5% PF 60 ML, EPINEPH... INT ART ONE
--- NOTE | 2020-10-19 09:55 | PDOC ---
Progress Note - Pain Clinic Date of Service: DOS: DATE: 10/19/20 TIME: 09:52 Diagnosis: Dx: Lumbar radiculopathy lumbar degenerative disc disease History or Present Illness: HPI: 72-year-old returns follow-up status post lumbar epidural steroid injection x1 most recently July 25, 2018. Patient reports he did very well with about a 80 to 90% improvement after the injection about 50% improved for about the last 3 to 4 months is beginning more painful in the low back and right lower extremity patient reports rating the posterior gluteus posterior lateral thigh lateral anterior thigh anterior medial thigh more on the right side than the left but some on the left side as well. Patient reports is a six on scale 10 is worse over the past week five on average to its least and is a five today. Patient reports is aching and dull shooting sometimes sharp and stabbing in the low back and the lower extremities again more on the right than the left side. Patient reports no new motor or sensory deficits no new bowel or bladder inco ntinence or other complaints. Patient has been doing physical therapy exercises on his own is doing 100 sit ups daily also using weights for the upper extremities for 30 to 40 minutes daily and walking up to 1 mile a day. Patient is doing stretching and strengthening as well that he learned with physical therapy after recent knee replacement also which is helpful for his back but is not controlling the pain significantly. Patient reports he is taking [id number] ibuprofen as well as Tylenol which helps spinal about 20%. Physical Exam: VS: Blood pressure is 110/65 pulse 85 respirations 18 temperature 98.1 F height is 6 foot weight is 196 pounds PE: PHYSICAL EXAMINATION: GENERAL: The patient is awake, alert, oriented, appropriate, very pleasant demeanor HEENT: Shows normocephalic, atraumatic. Extraocular movements are intact and symmetrical. Oral cavity: Mucous membranes moist and pink. Dentition is intact. NECK: Shows anterior throat supple without palpable lymphadenopathy noted. Swallow reflex symmetrical. CHEST: Shows normal on inspection. Breath sounds are clear bilaterally, no rales rhonchi wheezes auscultated. HEART: Shows S1, S2 clear. No murmurs auscultated. ABDOMEN: Soft, nontender, nondistended. No palpable organomegaly is noted. No rebound or guarding demonstrated. BACK: Shows spine grossly in the midline. Normal-appearing cervical lordotic curvature. There is slightly increased thoracic kyphosis, some minor flattening of the lumbar lordotic curvature. Lumbar paraspinous muscles show symmetrical on inspection, on palpation shows some moderate tenderness diffusely throughout the upper, middle and lower distribution of the paraspinous muscles bilaterally and also into the lower thoracic paraspinous musculature, firm and tender, but without specific trigger points, without radiation of pain. The patient has good rotational motion of the lumbar spine, both laterally as well as extension and flexion without significant difficulty. No tenderness over the spinous processes, sacrum or sacroiliac regions. EXTREMITIES: Lower extremities show deep tendon reflexes 1+ in the patellar and tendo calcaneus tendons. Motor exam is five on a scale of 5 with right dorsiflexion, extension, quadriceps and hamstring flexion and five/5 on the left. Peripheral pulses are 1+ posterior tibial. No peripheral edema is noted bilaterally. Lower extremities are warm and dry to touch, equal in color and appearance. SKIN: Shows warm and dry, good turgor. No edema. No sores, rashes or bruising throughout. Procedure: Procedure: Options were discussed with the patient. Patient's old chart was reviewed his his current medication regimen updated current review of systems updated today as well. Patient has clinical L3-4 radiculopathy. We will preauthorize patient for lumbar epidural steroid injections done very well with these in the past, with identical symptoms now returning in the low back and lower extremities. Patient continue with stretching three exercises working out as currently and oral analgesics as currently. Once preauthorized, patient will return to clinic for translaminar L3-4 level lumbar epidural steroid injection. Medication Injected: Med Injected: None Condition at Discharge: Condition at Discharge: Condition at discharge is stable. ERIBERTO GEORGES MD October 19, 2020 09:55
== END | disposition home or self-care (01) ==
LOC: PNCL 08:33
PROVIDERS: ATTEND Anesthesiology
DX: M51.16 Intervertebral disc disorders with radiculopathy, lumbar region (principal); K21.9 Gastro-esophageal reflux disease without esophagitis; M19.90 Unspecified osteoarthritis, unspecified site; Z87.891 Personal history of nicotine dependence; Z79.82 Long term (current) use of aspirin; Z79.899 Other long term (current) drug therapy; Z98.890 Other specified postprocedural states
CPT/HCPCS: 99212; G0463

== ENCOUNTER → 2020-11-02 | Outpatient (CLI) | payer MEDICARE, OTHER ==
[~2020-11-02] MED LIST changes: +IOHEXOL 180 MG/ML 10 ML VIAL. ONE; +methylPREDNISolone ACETATE 40 MG/ML VIAL. ONE; +methylPREDNISolone ACETATE 80 MG/ML VIAL. ONE
--- NOTE | 2020-11-02 10:27 | PDOC4 ---
PROCEDURE Procedure Patient was consented for lumbar epidural steroid injection. Risks were dis cussed including but not limited to: Bleeding, infection, possibility of epidural hematoma and subsequent neurological compromise, dural puncture, headaches, spinal cord and/or nerve damage, side effects of steroid medication, and poor results regarding pain control. Patient understands and wished to proceed. Procedure is lumbar epidural steroid injection under local anesthetic using sterile prep and drape at the L3-4 level using C-arm fluoroscopic guidance in both AP and lateral views medications injected is 120 mg Depo-Medrol +10mL preservative-free normal saline and 2 mL contrast- condition at discharge is stable patient tolerated procedure well had no complications. ERIBERTO GEORGES MD Nov 02, 2020 10:27
--- NOTE | 2020-11-02 10:27 | PDOC ---
Progress Note - Pain Clinic Date of Service: DOS: DATE: 11/02/20 TIME: 10:24 Diagnosis: Dx: Lumbar radiculopathy with lumbar degenerative disc disease History or Present Illness: HPI: 80-year-old male returns for follow-up status post lumbar epidural steroid injections most recently in 2019 patient did very well with these about 90% improvement and is waiting on preauthorization with his insurance provider which he is obtained now for additional injections as the pain is returned in the low back and left lower extremity. Patient reports no new motor or sensory deficits no new bowel or bladder incontinence reports the pain is in the low back mostly on the left side but present bilaterally radiating with walking standing changing positions better with sitting or lying down but worse with bending stooping repetitive motions patient rates is a 7 on scale 10 is worst over the past week 6 on average to its least is a 5 today patient describes as aching little across the low back and the lower extremity posterior gluteus posterior lateral and anterior thighs patient reports no new motor or sensory deficits no bowel or bladder incontinence or other complaints. Physical Exam: VS: Blood pressure is 106/56 pulse 67 respirations 18 temperature 98.7 F height is 6 foot weight is 197 pounds PE: PHYSICAL EXAMINATION: GENERAL: The patient is awake, alert, oriented, appropriate, very pleasant demeanor HEENT: Shows normocephalic, atraumatic. Extraocular movements are intact and symmetrical. Oral cavity: Mucous membranes moist and pink. NECK: Shows anterior throat supple without palpable lymphadenopathy noted. Swallow reflex symmetrical. CHEST: Shows normal on inspection. Breath sounds are clear bilaterally. HEART: Shows S1, S2 clear. No murmurs auscultated. ABDOMEN: Soft, nontender, nondistended, obese. No palpable organomegaly is noted. No rebound or guarding demonstrated. BACK: Shows spine grossly in the midline. Normal-appearing cervical lordotic curvature. There is slightly increased thoracic kyphosis, some minor flattening of the lumbar lordotic curvature. Lumbar paraspinous muscles show symmetrical on inspection, on palpation shows some moderate tenderness diffusely throughout the upper, middle and lower distribution of the paraspinous muscles without specific trigger points, without radiation of pain. The patient has good rotational motion of the lumbar spine, both laterally as well as extension and flexion without significant difficulty. EXTREMITIES: Lower extremities show deep tendon reflexes 1+ in the patellar and tendo calcaneus tendons. Motor exam is 5 on a scale of 5 with right dorsiflexion, extension, quadriceps and hamstring flexion and 5/5 on the left. Peripheral pulses are 1+ posterior tibial. No peripheral edema is noted bilaterally. Lower extremities are warm and dry to touch, equal in color and appearance. SKIN: Shows warm and dry, good turgor. No edema. No sores, rashes or bruising throughout. Procedure: Procedure: Options were discussed with the patient. Patient's old chart was reviewed his his current medication regimen updated current review of systems updated today as well. We will proceed with a first in the series lumbar epidural steroid injection stable fluoroscopic guidance. Risks were discussed including but not limited to: Bleeding, infection, possibility of epidural hematoma and subsequent neurological compromise, dural puncture, headaches, spinal cord and/or nerve damage, side effects of steroid medication, and poor results regarding pain control. Patient understands and wished to proceed. Patient will return to the clinic in approximately 2 weeks for follow-up, was counseled as to return appointment activity level and side effects to be aware of. Medication Injected: Med Injected: Procedure is lumbar epidural steroid injection under local anesthetic using sterile prep and drape at the L3-4 level using C-arm fluoroscopic guidance in both AP and lateral views medications injected is 120 mg Depo-Medrol +10mL preservative-free normal saline and 2 mL contrast- condition at discharge is stable patient tolerated procedure well had no complications. Condition at Discharge: Condition at Discharge: Condition at discharge stable, patient already procedure well and had no complications. ERIBERTO GEORGES MD Nov 02, 2020 10:27
== END | disposition home or self-care (01) ==
LOC: PNCL 09:22
PROVIDERS: ATTEND Anesthesiology
DX: M51.16 Intervertebral disc disorders with radiculopathy, lumbar region (principal); K21.9 Gastro-esophageal reflux disease without esophagitis; M19.90 Unspecified osteoarthritis, unspecified site; Z87.891 Personal history of nicotine dependence; Z79.899 Other long term (current) drug therapy; Z98.890 Other specified postprocedural states; Z80.3 Family history of malignant neoplasm of breast; Z83.3 Family history of diabetes mellitus
CPT/HCPCS: 62323; J1030; J1040; Q9965

== ENCOUNTER → 2021-06-13 | Outpatient (CLI) | payer MEDICARE, OTHER ==
[~2021-06-13] MED LIST changes: +POTA-121 PO; -POTA20TA4 PO; -QUET50TA PO; +QUET50TA3 PO
--- NOTE | 2021-06-13 11:16 | PDOC ---
Progress Note - Pain Clinic Date of Service: DOS: DATE: 06/13/21 TIME: 11:11 Diagnosis: Dx: Lumbar radiculopathy with lumbar degenerative disc disease History or Present Illness: HPI: 81-year-old male returns for follow-up last seen November 02, 2020 patient did very well after lumbar epidural steroid injection with about 80% improvement for 4 to 5 months patient reports the pain returning now about 60% improvement overall with pain in the low back into the left lower extremity posterior gluteus posterior lateral thigh lateral anterior thigh anterior medial thigh patient reports he has been increasing his exercise with much greater weight loss and much greater decrease in pain but still significant pain in the low back, as previously but now patient reports new pain that is primarily present in the left low back and involving the left leg. Patient reports previously was mostly across the low back but now more focused and radiating into the left leg significantly. Patient reports a 7 on scale 10 at all times average worst and least is a 7 today described as aching and dull radiating shooting worse with repetitive motions standing changing positions walking but better with sitting or laying down does not awaken her from sleep at night patient reports no bowel or bladder incontinence. Patient reports he is recent been diagnosed with diabetes and is awaiting further treatment plans with his primary physician. Once again patient did have a 40 pound weight loss since he is last here and mostly from exercise and diet modifications. Physical Exam: VS: Blood pressure is 136/73 pulse 81 respirations 18 temperature is 98.1 F height 6 foot weight is 201 pounds. PE: PHYSICAL EXAMINATION: GENERAL: The patient is awake, alert, oriented, appropriate, very pleasant in demeanor HEENT: Shows normocephalic, atraumatic. Extraocular movements are intact and symmetrical. Oral cavity: Mucous membranes moist and pink. NECK: Shows anterior throat supple without palpable lymphadenopathy noted. S wallow reflex symmetrical. CHEST: Shows normal on inspection. Breath sounds are clear bilaterally, distant no rales or rhonchi or wheezes auscultated. HEART: Shows S1, S2 clear. No murmurs auscultated. ABDOMEN: Soft, nontender, nondistended. No palpable organomegaly is noted. BACK: Shows spine grossly in the midline. Normal-appearing cervical lordotic curvature. There is slightly increased thoracic kyphosis, some flattening of the lumbar lordotic curvature. Lumbar paraspinous muscles show symmetrical on inspection, on palpation shows some moderate tenderness diffusely throughout the upper, middle and lower distribution of the paraspinous muscles without specific trigger points, without radiation of pain. The patient has good rotational motion of the lumbar spine, both laterally as well as extension and flexion without significant difficulty. EXTREMITIES: Lower extremities show deep tendon reflexes 1+ in the patellar and tendo calcaneus tendons. Motor exam is 5 on a scale of 5 with right dorsiflexion, extension, quadriceps and hamstring flexion and 5/5 on the left. Peripheral pulses are 1+ posterior tibial. No peripheral edema is noted bilaterally. Lower extremities are warm and dry to touch, equal in color and appearance. SKIN: Shows warm and dry, good turgor. No edema. No sores, rashes or bruising throughout. Procedure: Procedure: Options discussed with the patient. Patient's old chart was reviewed as her current medication regimen updated current review of systems updated today as well. We will proceed with a lumbar epidural steroid injection today with fluoroscopic guidance. Risks were discussed including but not limited to: Bleeding, infection, possibility of epidural hematoma and subsequent neurological compromise, dural puncture, headaches, spinal cord and/or nerve damage, side effects of steroid medication, and poor results regarding pain control. Patient understands and wished to proceed. Patient will return to clinic in approximately 2 weeks for follow-up, was counseled as return appointment, activity level, and side effect to be aware of. Medication Injected: Med Injected: Procedure is lumbar epidural steroid injection under local anesthetic using sterile prep and drape at the L3-4 level using C-arm fluoroscopic guidance in both AP and lateral views medications injected is 120 mg Depo-Medrol +10mL preservative-free normal saline and 2 mL contrast- condition at discharge is stable patient tolerated procedure well had no complications. Condition at Discharge: Condition at Discharge: Condition at discharge stable, patient tolerated the procedure well and had no complications. ERIBERTO GEORGES MD Jun 13, 2021 11:16
--- NOTE | 2021-06-13 11:16 | PDOC4 ---
Procedure Note: ICD 10 Code: ICD 10 Code: M54.16 M51.36 Procedure Note: Patient was consented for lumbar epidural steroid injection with fluoroscopic guidance. Risks were discussed including but not limited to: Bleeding, infection, possibility of epidural hematoma and subsequent neurological compromise, dural puncture, headaches, spinal cord and/or nerve damage, side effects of steroid medication, and poor results regarding pain control. Patient understands and wished to proceed. Procedure is lumbar epidural steroid injection under local anesthetic using sterile prep and drape at the L3-4 level using C-arm fluoroscopic guidance in both AP and lateral views medications injected is 120 mg Depo-Medrol +10mL preservative-free normal saline and 2 mL contrast- condition at discharge is stable patient tolerated procedure well had no complications. ERIBERTO GEORGES MD Jun 13, 2021 11:16
== END | disposition home or self-care (01) ==
LOC: PNCL 10:13
PROVIDERS: ATTEND Anesthesiology
DX: M51.16 Intervertebral disc disorders with radiculopathy, lumbar region (principal); K21.9 Gastro-esophageal reflux disease without esophagitis; M19.90 Unspecified osteoarthritis, unspecified site; Z87.891 Personal history of nicotine dependence; Z79.82 Long term (current) use of aspirin; Z79.899 Other long term (current) drug therapy; Z98.890 Other specified postprocedural states
CPT/HCPCS: 62323; J1030; J1040; Q9965